=== PATIENT | female | born 1955 | race Caucasian/White ===

== ENCOUNTER 2018-01-24 23:01 | Emergency (ER) | payer BC ==
--- NOTE | 2018-01-24 23:13 | ERPHSYRPT ---
- History of Present Illness Time Seen by Provider: 01/24/18 23:09 Source: patient Exam Limitations: no limitations Physician History: The patient is a 62-year-old female with her who comes in at request of Dr. Brower who the patient saw yesterday. Dr. Brower calls me to inform me that the patient had bilateral lower extremity DVTs and was started on Xarelto. Her basic blood profile came back today and her hemoglobin was 4.4. Dr. Brower told the patient who lives nearby to come to this ER was then transport to [facility] the patient denies shortness of breath or chest pain. She has been tired and weak but attributes that to having taking care of her brother who just 2 days ago. Her PMH is chronic pain syndrome, GERD, edema, and high cholesterol. Timing/Duration: yesterday Severity: moderate Modifying Factors: Improves With: nothing Associated Symptoms: other (tiredness) Allergies/Adverse Reactions: erythromycin base Allergy (Verified 01/24/18 23:16) hives Home Medications: Buprenorphine HCl/Naloxone HCl [Suboxone 8 mg-2 mg Sl Film] 8 mg SL TID [History] Cholecalciferol (Vitamin D3) [Vitamin D3] 1 cap PO DAILY 01/24/18 [History] Diclofenac Sodium Gel [Voltaren GEL] 1 dose TD DAILY 01/24/18 [History] Lamotrigine [Lamictal] 25 mg PO DAILY 01/24/18 [History] Lidocaine HCl 5% Patch [Lidoderm Patch 5%] 1 patch TD DAILY 01/24/18 [ History] Methyl-B12/l-Mefolate/B6 Phos [Metanx Tablet] 1 tablet PO DAILY 01/24/18 [ History] PANTOPRAZOLE 40 mg Tablet [Protonix 40MG Tablet] 40 mg PO DAILY 01/24/18 [ History] Ranitidine HCl [Taladine] 150 mg PO DAILY 01/24/18 [History] Trazodone HCl 50 mg [Desyrel 50 mg] 50 mg PO DAILY 01/24/18 [History] Venlafaxine HCl [Effexor Xr] 150 mg PO DAILY 01/24/18 [History] - Review of Systems Constitutional: Malaise Eyes: No Symptoms Ears, Nose, & Throat: No Symptoms Respiratory: No Cough, No Dyspnea Cardiac: No Chest Pain, No Edema, No Syncope Abdominal/Gastrointestinal: No Abdominal Pain, No Nausea, No Vomiting, No Diarrhea Genitourinary Symptoms: No Dysuria Musculoskeletal: No Back Pain, No Neck Pain Skin: No Rash Neurological: No Dizziness, No Focal Weakness, No Sensory Changes Psychological: No Symptoms Endocrine: No Symptoms Hematologic/Lymphatic: No Symptoms Immunological/Allergic: No Symptoms All Other Systems: Reviewed and Negative - Nursing Vital Signs Nursing Vital Signs: Pain Scale Pain Intensity 1 - Physical Exam General Appearance: no apparent distress, alert Eye Exam: PERRL/EOMI, eyes nml inspection Ears, Nose, Throat Exam: normal ENT inspection, TMs normal, pharynx normal, moist mucous membranes Neck Exam: normal inspection, non-tender, supple, full range of motion Respiratory Exam: normal breath sounds, lungs clear, No respiratory distress Cardiovascular Exam: tachycardia Gastrointestinal/Abdomen Exam: soft, normal bowel sounds, No tenderness, No mass Pelvic Exam: not done Rectal Exam: not done Back Exam: normal inspection, normal range of motion, No CVA tenderness, No vertebral tenderness Extremity Exam: normal inspection, normal range of motion, pelvis stable Neurologic Exam: alert, oriented x 3, cooperative, normal mood/affect, nml cerebellar function, nml station & gait, sensation nml, No motor deficits Skin Exam: pale Lymphatic Exam: No adenopathy SpO2 Interpretation: normal Ordered Tests: Active Orders 24 hr Category Date Time Status BMP Stat Lab 01/24/18 23:29 Completed CBC W DIFF Stat Lab 01/24/18 23:29 Completed Lab/Rad Data: Laboratory Result Diagrams 01/24/18 23:29 01/24/18 23:29 Laboratory Results 01/25/18 01/24/18 01/24/18 Range/Units 00:00 23:29 23:29 WBC (4.0-10.5) K/mm3 RBC (4.1-5.4) M/mm3 Hgb (12.0-16.0) gm/dl Hct (35-47) % MCV (78-100) fl MCH (26-32) pg MCHC (32-36) g/dl RDW (11.5-14.0) % Plt Count (150-450) K/mm3 MPV (6-9.5) fl Gran % (36.0-66.0) % Eos # (Auto) (0-0.5) Absolute Lymphs (auto) (1.0-4.6) Absolute Monos (auto) (0.0-1.3) Lymphocytes % (24.0-44.0) % Monocytes % (0.0-12.0) % Eosinophils % (0.00-5.0) % Basophils % (0.0-0.4) % Absolute Granulocytes (1.4-6.9) Basophils # (0-0.4) Sodium 139 (137-145) mmol/L Potassium 3.9 (3.5-5.1) mmol/L Chloride 100 (98-107) mmol/L Carbon Dioxide 30 (22-30) mmol/L Anion Gap 12.4 (5-15) MEQ/L BUN 14 (7-17) mg/dL Creatinine 0.52 (0.52-1.04) mg/dL Estimated GFR > 60.0 ML/MIN Glucose 101 (74-106) mg/dL Calcium 9.3 (8.4-10.2) mg/dL Slides for Path Review ABO Group O Rh Factor NEGATIVE Antibody Screen NEGATIVE (NEGATIVE) Crossmatch COMPATIBLE (COMPATIBLE) 01/24/18 Range/Units 23:29 WBC 5.3 (4.0-10.5) K/mm3 RBC 3.02 L (4.1-5.4) M/mm3 Hgb 4.4 L* (12.0-16.0) gm/dl Hct 16.7 L (35-47) % MCV 55.3 L (78-100) fl MCH 14.5 L (26-32) pg MCHC 26.3 L (32-36) g/dl RDW 20.5 H (11.5-14.0) % Plt Count 614 H (150-450) K/mm3 MPV 10.1 H (6-9.5) fl Gran % 45.1 (36.0-66.0) % Eos # (Auto) 0.02 (0-0.5) Absolute Lymphs (auto) 2.08 (1.0-4.6) Absolute Monos (auto) 0.77 (0.0-1.3) Lymphocytes % 39.5 (24.0-44.0) % Monocytes % 14.6 H (0.0-12.0) % Eosinophils % 0.4 (0.00-5.0) % Basophils % 0.4 (0.0-0.4) % Absolute Granulocytes 2.37 (1.4-6.9) Basophils # 0.02 (0-0.4) Sodium (137-145) mmol/L Potassium (3.5-5.1) mmol/L Chloride (98-107) mmol/L Carbon Dioxide (22-30) mmol/L Anion Gap (5-15) MEQ/L BUN (7-17) mg/dL Creatinine (0.52-1.04) mg/dL Estimated GFR ML/MIN Glucose (74-106) mg/dL Calcium (8.4-10.2) mg/dL Slides for Path Review YES ABO Group Rh Factor Antibody Screen (NEGATIVE) Crossmatch (COMPATIBLE) - Progress Progress: unchanged Progress Note: 01/25/18 00:12 Pt given 1 unit of PRBC in our ER before transport to [facility] to see Dr Pathak for Dr Brower. Counseled pt/family regarding: lab results, diagnosis - Departure Time of Disposition: 00:13 Departure Disposition: Transfer (Transfer to [facility] per Dr Pathak for Dr Brower.) Clinical Impression: Anemia Condition: Stable Critical Care Time: No Referrals: TYE BROWER MD [Primary Care Provider] -
[2018-01-24 23:32] LABS: BASOPHIL % 0.4 % (0.0-0.4); Basophil (Absolute #) 0.02 (0-0.4); Eosinophil % 0.4 % (0.00-5.0); Eosinophil (Absolute #) 0.02 (0-0.5); Granulocyte Absolute (ANC) 2.37 (1.4-6.9); Granulocytes % 45.1 % (36.0-66.0); Hematocrit 16.7 % (35-47); Lymphocyte (Absolute #) 2.08 (1.0-4.6); Lymphocytes % 39.5 % (24.0-44.0); Mean Cell Volume 55.3 fl (78-100); Mean Corpuscular Hgb Concent. 26.3 g/dl (32-36); Mean Platelet Volume 10.1 fl (6-9.5); Monocyte (Absolute #) 0.77 (0.0-1.3); Monocytes % 14.6 % (0.0-12.0); Platelet Count 614 K/mm3 (150-450); Red Blood Count 3.02 M/mm3 (4.1-5.4); Red Cell Distribution Width 20.5 % (11.5-14.0); White Blood Count 5.3 K/mm3 (4.0-10.5)
[2018-01-24 23:35] LABS: Hemoglobin 4.4 gm/dl (12.0-16.0); Mean Corpuscular Hemoglobin 14.5 pg (26-32)
[2018-01-24 23:49] LABS: ANION GAP 12.4 MEQ/L (5-15); BLOOD UREA NITROGEN 14 mg/dL (7-17); CHLORIDE 100 mmol/L (98-107); Calcium 9.3 mg/dL (8.4-10.2); Carbon Dioxide 30 mmol/L (22-30); Creatinine 1 0.52 mg/dL (0.52-1.04); Glucose 101 mg/dL (74-106); Potassium 3.9 mmol/L (3.5-5.1); SODIUM 139 mmol/L (137-145)
[2018-01-25 00:04] LABS: Slide Review 1 YES
[2018-01-25 00:12] LABS: ABO TYPING O; Antibody Screen NEGATIVE (NEGATIVE); RH TYPING NEGATIVE
[2018-01-25] MEDS ORDERED: Sodium Chloride 0.9% 1000 ML 1,000 ML ONE (01:07)
[2018-01-25 02:52] VITALS: BP 128/94; PULSE 78; O2SAT 96
== END 2018-01-25 02:52 | disposition short-term general hospital (02) ==
LOC: ED 23:01
DX: D64.9 Anemia, unspecified (principal); Z79.899 Other long term (current) drug therapy; I82.403 Acute embolism and thrombosis of unspecified deep veins of lower extremity, bilateral; Z79.01 Long term (current) use of anticoagulants
CPT/HCPCS: 36415; 80048; 85025; 86850; 86900; 86901; 86922; 96365; 99285; P9016; 36430

== ENCOUNTER 2021-10-15 10:54 | Emergency (ER) | payer MEDICARE, OTHER ==
[2021-10-15] MEDS ORDERED: MORPHINE SULFATE 4 MG INJ IV ONE (11:46)
[2021-10-15] MEDS ORDERED: TYLENOL 325 MG PO ONE (11:46)
[2021-10-15] MEDS ORDERED: Zofran 4 MG/2 ML VIAL IV ONE (11:46)
[2021-10-15 12:17] LABS: Absolute Neutrophil Ct (ANC) 3.37 (1.4-6.9); Basophil (Absolute #) 0.01 (0-0.4); Eosinophil % 0.5 % (0.00-5.0); Eosinophil (Absolute #) 0.02 (0-0.5); Hematocrit 38.1 % (35-47); Hemoglobin 12.6 gm/dl (12.0-16.0); Mean Cell Volume 91.1 fl (78-100); Mean Corpuscular Hemoglobin 30.1 pg (26-32); Mean Corpuscular Hgb Concent. 33.1 g/dl (32-36); Mean Platelet Volume 11.4 fl (7.5-11.0); Monocyte (Absolute #) 0.59 (0.0-1.3); Monocytes % 13.8 % (0.0-12.0); Neutrophil % 78.5 % (36.0-66.0); Platelet Count 179 K/mm3 (150-450); Red Blood Count 4.18 M/mm3 (4.1-5.4); Red Cell Distribution Width 13.5 % (11.5-14.0); White Blood Count 4.3 K/mm3 (4.0-10.5)
--- NOTE | 2021-10-15 12:17 | ERPHSYRPT ---
- History of Present Illness Time Seen by Provider: 10/15/21 11:02 Source: patient Exam Limitations: no limitations Patient Subjective Stated Complaint: Pt states that she is having amanda leg pain and nausea Triage Nursing Assessment: Pt brought to the ER by her granddaughter, hyertensive, tachycardic, pt states that she woke up with severe amanda leg pain, nausea with dry heaves, headache, pulses normal, skin n/w/d, walks with a cane, states that she has a history of DVT's Physician History: 66 years old female vaccinated for COVID-19, history of arthritis on Suboxone, DVT on Xarelto regularly presented in the ER with multiple complaints. Patient reports she woke up with bilateral hip/thigh pain, headache, body aches with nausea/dry heaving, feeling weak fatigued tired without fever chills cough or shortness of breath. Denies any abdominal pain. Did not miss dose of Xarelto. Patient states "I need something for my thigh pains which is killing me". Timing/Duration: today Severity: moderate Associated Symptoms: nausea, malaise, No vomiting, No abdominal pain, No shortness of breath, No fever Allergies/Adverse Reactions: pregabalin [From Lyrica] Allergy (Intermediate, Verified 10/15/21 11:14) Rash erythromycin base Allergy (Verified 10/15/21 11:14) hives Home Medications: Buprenorphine HCl/Naloxone HCl [Suboxone 8 mg-2 mg Sl Film] 8 mg SL TID 01/24/18 [History] PANTOPRAZOLE 40 mg Tablet [Protonix 40MG Tablet] 40 mg PO DAILY 01/24/18 [History] Trazodone HCl 50 mg [Desyrel 50 mg] 50 mg PO DAILY 01/24/18 [History] lamoTRIgine [Lamictal] 25 mg PO DAILY 01/24/18 [History] raNITIdine HCL [Taladine] 150 mg PO DAILY 01/24/18 [History] ARIPiprazole [Aripiprazole] 2 mg PO HS 10/15/21 [History] Famotidine 40 mg PO DAILY 10/15/21 [History] Rivaroxaban 10 mg Tablet [Xarelto 10 mg Tablet] 10 mg PO DAILY 10/15/21 [History] Sertraline HCl [Zoloft] 150 mg PO DAILY 10/15/21 [History] Travel Risk - International Travel Have you traveled outside of the country in past 3 weeks: No - Coronavirus Screening Are you exhibiting any of the following symptoms?: Yes Symptoms: Vomiting/Diarrhea, Headaches/Body Aches/Fatigue - Vaccine Status Have you recieved a Covid-19 vaccination: Yes Security Attendant: [employer] - Review of Systems Constitutional: Fatigue Eyes: No Symptoms Ears, Nose, & Throat: No Symptoms Respiratory: No Symptoms Cardiac: No Symptoms Abdominal/Gastrointestinal: Nausea Genitourinary Symptoms: No Symptoms Musculoskeletal: Arthralgias, Back Pain, Myalgias Skin: No Symptoms Neurological: Headache Psychological: No Symptoms Endocrine: No Symptoms Hematologic/Lymphatic: No Symptoms Immunological/Allergic: No Symptoms - Past Medical History Pertinent Past Medical History: Yes Neurological History: No Pertinent History ENT History: No Pertinent History Cardiac History: No Pertinent History Respiratory History: No Pertinent History Endocrine Medical History: No Pertinent History Musculoskeletal History: Arthritis, Fibromyalgia GI Medical History: GERD History: No Pertinent History Psycho-Social History: No Pertinent History Female Reproductive Disorders: No Pertinent History Other Medical History: hiatal hernia, constipation, edema, coagulopathy, oste omalacia, osteopenia, scoliosis - Past Surgical History Past Surgical History: Yes Neuro Surgical History: No Pertinent History Cardiac: No Pertinent History Respiratory: No Pertinent History Gastrointestinal: Hernia Repair Genitourinary: No Pertinent History Musculoskeletal: No Pertinent History Female Surgical History: Hysterectomy - Social History Smoking Status: Former smoker Exposure to second hand smoke: No Drug Use: none Patient Lives Alone: No - Female History Hx Now: No - Nursing Vital Signs Nursing Vital Signs: Initial Vital Signs Temperature 98.8 F 10/15/21 11:04 Pulse Rate 108 H 10/15/21 11:04 Blood Pressure 162/117 10/15/21 11:04 O2 Sat by Pulse Oximetry 96 10/15/21 11:04 Pain Scale Pain Intensity 10 - Physical Exam General Appearance: no apparent distress, alert Eye Exam: PERRL/EOMI, eyes nml inspection Ears, Nose, Throat Exam: normal ENT inspection, TMs normal, pharynx normal Neck Exam: normal inspection, non-tender, supple, carotid bruit Respiratory Exam: normal breath sounds, lungs clear Cardiovascular Exam: regular rate/rhythm, normal heart sounds Gastrointestinal/Abdomen Exam: soft, normal bowel sounds, No tenderness Back Exam: normal inspection, normal range of motion Extremity Exam: normal inspection, normal range of motion, pelvis stable Neurologic Exam: alert, oriented x 3, cooperative, backbreaker II-XII nml as tested Skin Exam: normal color SpO2 Interpretation: normal SpO2: 96 O2 Delivery: Room Air Ordered Tests: Active Orders 24 hr Category Date Time Status CBC W DIFF Stat Lab 10/15/21 12:10 Completed CK (IN-HOUSE) [CK-Creatinine Phosphokinase] Stat Lab 10/15/21 12:10 Completed CMP Stat Lab 10/15/21 12:10 Completed COVID AG-BINAX NOW RAPID TEST Stat Lab 10/15/21 13:07 Completed CULTURE,URINE Stat Lab 10/15/21 12:31 Received UA W/RFX UR CULTURE Stat Lab 10/15/21 12:31 Completed Medication Summary Discontinued Medications Generic Name Dose Route Start Last Admin Trade Name Freq PRN Reason Stop Dose Admin Acetaminophen 975 mg 10/15/21 11:46 10/15/21 12:43 Acetaminophen 325 Mg Tablet PO 10/15/21 11:47 975 mg STAT ONE Administration Acetaminophen Confirm 10/15/21 12:41 Acetaminophen 325 Mg Tablet Administered 10/15/21 12:42 Dose 975 mg .ROUTE .STK-MED ONE Cephalexin HCl 500 mg 10/15/21 13:24 10/15/21 13:36 Cephalexin Mh500 Mg Capsule PO 10/15/21 13:25 500 mg STAT ONE Administration Cephalexin HCl Confirm 10/15/21 13:34 Cephalexin Mh500 Mg Capsule Administered 10/15/21 13:35 Dose 500 mg .ROUTE .STK-MED ONE Morphine Sulfate 4 mg 10/15/21 11:46 10/15/21 12:42 Morphine Sulfate 4 Mg/Ml Injection IV 10/15/21 11:47 4 mg STAT ONE Administration Morphine Sulfate Confirm 10/15/21 12:41 Morphine Sulfate 4 Mg/Ml Injection Administered 10/15/21 12:42 Dose 4 mg .ROUTE .STK-MED ONE Ondansetron HCl 4 mg 10/15/21 11:46 10/15/21 12:42 Ondansetron Hcl 4 Mg/2 Ml Vial IV 10/15/21 11:47 4 mg STAT ONE Administration Ondansetron HCl Confirm 10/15/21 12:41 Ondansetron Hcl 4 Mg/2 Ml Vial Administered 10/15/21 12:42 Dose 4 mg .ROUTE .STK-MED ONE Lab/Rad Data: Laboratory Result Diagrams 10/15/21 12:10 10/15/21 12:10 Laboratory Results 10/15/21 10/15/21 10/15/21 Range/Units 13:07 12:31 12:10 WBC (4.0-10.5) K/mm3 RBC (4.1-5.4) M/mm3 Hgb (12.0-16.0) gm/dl Hct (35-47) % MCV (78-100) fl MCH (26-32) pg MCHC (32-36) g/dl RDW (11.5-14.0) % Plt Count (150-450) K/mm3 MPV (7.5-11.0) fl Gran % (36.0-66.0) % Eos # (Auto) (0-0.5) Absolute Lymphs (auto) (1.0-4.6) Absolute Monos (auto) (0.0-1.3) Lymphocytes % (24.0-44.0) % Monocytes % (0.0-12.0) % Eosinophils % (0.00-5.0) % Basophils % (0.0-0.4) % Absolute Granulocytes (1.4-6.9) Basophils # (0-0.4) Sodium (137-145) mmol/L Potassium (3.5-5.1) mmol/L Chloride (98-107) mmol/L Carbon Dioxide (22-30) mmol/L Anion Gap (5-15) MEQ/L BUN (7-17) mg/dL Creatinine (0.52-1.04) mg/dL Estimated GFR ML/MIN Glucose (74-106) mg/dL Calcium (8.4-10.2) mg/dL Total Bilirubin (0.2-1.3) mg/dL AST (14-36) U/L ALT (0-35) U/L Alkaline Phosphatase (38-126) U/L Creatine Kinase 50 (30-135) U/L Serum Total Protein (6.3-8.2) g/dL Albumin (3.5-5.0) g/dL Urine Color YELLOW (YELLOW) Urine Appearance SLIGHTLY CLOUDY (CLEAR) Urine pH 5.0 (5-6) Ur Specific [place] 1.018 (1.005-1.025) Urine Protein 30 (Negative) Urine Ketones TRACE (NEGATIVE) Urine Blood SMALL (0-5) Patricio/ul Urine Nitrite NEGATIVE (NEGATIVE) Urine Bilirubin NEGATIVE (NEGATIVE) Urine Urobilinogen 2 (0-1) mg/dL Ur Leukocyte Esterase LARGE (NEGATIVE) Urine WBC (Auto) 16-25 (0-5) /HPF Urine RBC (Auto) 3-5 (0-2) /HPF U Epithel Cells (Auto) RARE (FEW) /HPF Urine Bacteria (Auto) RARE (NEGATIVE) /HPF Urine Mucus (Auto) SLIGHT (NEGATIVE) /HPF Urine Culture Reflexed YES (NO) Urine Glucose NEGATIVE (NEGATIVE) mg/dL SARS-CoV-2 Ag (Rapid) POSITIVE A* (NEGATIVE) Slides for Path Review 10/15/21 10/15/21 Range/Units 12:10 12:10 WBC 4.3 (4.0-10.5) K/mm3 RBC 4.18 (4.1-5.4) M/mm3 Hgb 12.6 (12.0-16.0) gm/dl Hct 38.1 (35-47) % MCV 91.1 (78-100) fl MCH 30.1 (26-32) pg MCHC 33.1 (32-36) g/dl RDW 13.5 (11.5-14.0) % Plt Count 179 (150-450) K/mm3 MPV 11.4 H (7.5-11.0) fl Gran % 78.5 H (36.0-66.0) % Eos # (Auto) 0.02 (0-0.5) Absolute Lymphs (auto) 0.30 L (1.0-4.6) Absolute Monos (auto) 0.59 (0.0-1.3) Lymphocytes % 7.0 L (24.0-44.0) % Monocytes % 13.8 H (0.0-12.0) % Eosinophils % 0.5 (0.00-5.0) % Basophils % 0.2 (0.0-0.4) % Absolute Granulocytes 3.37 (1.4-6.9) Basophils # 0.01 (0-0.4) Sodium 136 L (137-145) mmol/L Potassium 3.5 (3.5-5.1) mmol/L Chloride 98 (98-107) mmol/L Carbon Dioxide 28 (22-30) mmol/L Anion Gap 13.1 (5-15) MEQ/L BUN 13 (7-17) mg/dL Creatinine 0.65 (0.52-1.04) mg/dL Estimated GFR > 60.0 ML/MIN Glucose 113 H (74-106) mg/dL Calcium 9.2 (8.4-10.2) mg/dL Total Bilirubin 0.50 (0.2-1.3) mg/dL AST 31 (14-36) U/L ALT 19 (0-35) U/L Alkaline Phosphatase 106 (38-126) U/L Creatine Kinase (30-135) U/L Serum Total Protein 7.3 (6.3-8.2) g/dL Albumin 4.3 (3.5-5.0) g/dL Urine Color (YELLOW) Urine Appearance (CLEAR) Urine pH (5-6) Ur Specific [place] (1.005-1.025) Urine Protein (Negative) Urine Ketones (NEGATIVE) Urine Blood (0-5) Patricio/ul Urine Nitrite (NEGATIVE) Urine Bilirubin (NEGATIVE) Urine Urobilinogen (0-1) mg/dL Ur Leukocyte Esterase (NEGATIVE) Urine WBC (Auto) (0-5) /HPF Urine RBC (Auto) (0-2) /HPF U Epithel Cells (Auto) (FEW) /HPF Urine Bacteria (Auto) (NEGATIVE) /HPF Urine Mucus (Auto) (NEGATIVE) /HPF Urine Culture Reflexed (NO) Urine Glucose (NEGATIVE) mg/dL SARS-CoV-2 Ag (Rapid) (NEGATIVE) Slides for Path Review YES - Progress Progress: improved Progress Note: 10/15/21 12:18 Although patient is on Xarelto, still very little chance of having DVT, recommended ultrasound which patient refused. Patient states "I have ultrasound done less than a week ago and it was negative. She is informed that since her pain started this morning she needs another scan but she refused again and wants something for pain only. She does understand the risk of having another DVT which can lead to pulmonary embolism, stroke but still refused. She is not c onfused or altered at all. 10/15/21 14:03 She is given symptomatic treatment for pain, on reevaluation feeling better. She has grossly unremarkable lab work except for some element of UTI and started on Keflex. Patient on repeated evaluation refused ultrasound as well. I have obtained rapid Covid test which is positive and with her symptoms it seems like she has viral syndrome. Recommended supportive care and outpatient follow-up. Lungs bilateral clear to auscultation and does not have any difficulty breathing, do not think needs any imaging or other work-up and is stable for discharge. Counseled pt/family regarding: lab results, diagnosis, need for follow-up - Departure Departure Disposition: Home Clinical Impression: Acute viral syndrome, Leg pain, bilateral, COVID-19 virus detected, Acute UTI Condition: Stable Critical Care Time: No Referrals: TYE BROWER MD [Primary Care Provider] - Follow up/PCP as directed (1-2 days for reevaluation) Instructions: Coronavirus Disease 2019 (COVID-19) (DC), Deep Vein Thrombosis (Blood Clots in the Legs) Additional Instructions: Continue with your blood thinner/Xarelto. Follow-up with primary care for reevaluation. Take Tylenol as needed. Follow contact/droplet precautions for COVID-19. Return to ER for worsening pain, intractable vomiting/persistent high-grade fever/difficulty breathing etc. Prescriptions: Cephalexin Mh 500 mg [Keflex 500 mg] 500 mg PO TID #21 cap
[2021-10-15] MEDS ORDERED: MORPHINE SULFATE 4 MG INJ ONE (12:41)
[2021-10-15] MEDS ORDERED: Zofran 4 MG/2 ML VIAL ONE (12:41)
[2021-10-15] MEDS ORDERED: TYLENOL 325 MG ONE (12:41)
[2021-10-15 12:43] LABS: ALBUMIN 4.3 g/dL (3.5-5.0); ALKALINE PHOSPHATASE 106 U/L (38-126); ANION GAP 13.1 MEQ/L (5-15); BLOOD UREA NITROGEN 13 mg/dL (7-17); CHLORIDE 98 mmol/L (98-107); Calcium 9.2 mg/dL (8.4-10.2); Carbon Dioxide 28 mmol/L (22-30); Creatinine 1 0.65 mg/dL (0.52-1.04); EST GLOMERULAR FILTRATION RATE > 60.0 ML/MIN; Glucose 113 mg/dL (74-106); Potassium 3.5 mmol/L (3.5-5.1); SGOT/AST 31 U/L (14-36); SGPT/ALT 19 U/L (0-35); SODIUM 136 mmol/L (137-145); Total Protein 7.3 g/dL (6.3-8.2)
[2021-10-15 13:09] LABS: Appearance SLIGHTLY CLOUDY (CLEAR); Bacteria RARE /HPF (NEGATIVE); Bilirubin NEGATIVE (NEGATIVE); Blood SMALL Ery/ul (0-5); Epithelial Cells RARE /HPF (FEW); Glucose NEGATIVE (NEGATIVE); Ketones TRACE (NEGATIVE); Leukocyte Esterase LARGE (NEGATIVE); Mucus SLIGHT /HPF (NEGATIVE); Nitrite NEGATIVE (NEGATIVE); Protein,Urine Dip 30 (Negative); Specific Gravity 1.018 (1.005-1.025); Urobilinogen 2 mg/dL (0-1)
[2021-10-15] MEDS ORDERED: KEFLEX 500 MG PO ONE (13:24)
[2021-10-15 13:27] LABS: Slide Review 1 YES
[2021-10-15] MEDS ORDERED: KEFLEX 500 MG ONE (13:34)
[2021-10-15 13:49] LABS: COVID AG -BINAX NOW RAPID TEST POSITIVE (NEGATIVE)
[2021-10-15 14:12] VITALS: BP 145/101; PULSE 107; O2SAT 91
== END 2021-10-15 14:22 | disposition home or self-care (01) ==
LOC: ED 10:54
DX: U07.1 COVID-19 (principal); N39.0 Urinary tract infection, site not specified; M79.18 Myalgia, other site; M25.552 Pain in left hip; M25.551 Pain in right hip; R51.9 Headache, unspecified; R11.0 Nausea; R53.81 Other malaise; M19.09 Primary osteoarthritis, other specified site; Z86.718 Personal history of other venous thrombosis and embolism; Z79.01 Long term (current) use of anticoagulants; Z79.891 Long term (current) use of opiate analgesic
CPT/HCPCS: 36000; 36415; 80053; 81001; 82550; 85025; 87086; 96374; 96375; 99000; 99284; J2270; J2405; A9270-GY

== ENCOUNTER 2022-09-14 17:16 | Observation (INO) | payer MEDICARE, OTHER ==
[2022-09-14] MEDS ORDERED: solu-MEDROL 125 MG, Sterile H2O 10 ml 2 ML IV ONE ×2 (18:02)
[2022-09-14] MEDS ORDERED: DUONEB 0.5-3 MG/3 ml Neb IH ONE ×2 (18:02→18:29)
[2022-09-14] MEDS ORDERED: Sterile H2O 10 ml IJ ONE (18:22)
[2022-09-14] MEDS ORDERED: solu-MEDROL ONE (18:22)
[2022-09-14 18:46] LABS: Absolute Neutrophil Ct (ANC) 4.42 x10^3/uL (1.4-6.9); Basophil (Absolute #) 0.02 x10^3/uL (0-0.4); Eosinophil % 0.2 % (0.00-5.0); Eosinophil (Absolute #) 0.01 x10^3/uL (0-0.5); Hematocrit 40.5 % (35-47); Hemoglobin 13.1 g/dL (12.0-16.0); Lymphocyte (Absolute #) 1.29 x10^3/uL (1.0-4.6); Lymphocytes % 20.2 % (24.0-44.0); Mean Cell Volume 89.2 fL (78-100); Mean Corpuscular Hemoglobin 28.9 pg (26-32); Mean Corpuscular Hgb Concent. 32.3 g/dL (32-36); Mean Platelet Volume 11.1 fL (7.5-11.0); Monocyte (Absolute #) 0.63 x10^3/uL (0.0-1.3); Monocytes % 9.9 % (0.0-12.0); Neutrophil % 69.1 % (36.0-66.0); Platelet Count 270 x10^3/uL (150-450); Red Blood Count 4.54 x10^6/uL (4.1-5.4); Red Cell Distribution Width 12.8 % (11.5-14.0); White Blood Count 6.4 x10^3/uL (4.0-10.5)
--- NOTE | 2022-09-14 18:49 | ERPHSYRPT ---
- History of Present Illness Source: patient Exam Limitations: no limitations Patient Subjective Stated Complaint: SOB with exertion, did have a cough but is over it now Triage Nursing Assessment: Pt brought to the ER by her , baron wnl, denies pain at this time, skin n/w/d, family had all been sick 2 weeks ago and she didn't get over it, pulses normal, placed 2L NC due to oxygen running at 93% and is now at 96-97% Timing/Duration: week(s) (2) Activities at Onset: none Severity of Dyspnea-Max: moderate Severity of Dyspnea-Current: moderate Possible Cause: no prior episodes Modifying Factors: Improves With: coughing Associated Symptoms: cough, No fever, No chills Hx Influenza Vaccination/Date Given: No Hx Pneumococcal Vaccination/Date Given: No <REYNALDO BERGMAN - Last Filed: 09/14/22 18:43> <SHONDA DILL - Last Filed: 09/14/22 21:45> - History of Present Illness Time Seen by Provider: 09/14/22 17:55 Physician History: Patient is a 67-year-old female who presents with a complaint of dyspnea and cough. The entire family was sick for short period of time 2 weeks ago most members of the family recovered within 48 hours but this patient has not. She denies any fever chills or sweats just difficulty urinating and extreme shortne ss of breath. (REYNALDO BERGMAN) Allergies/Adverse Reactions: pregabalin [From Lyrica] Allergy (Intermediate, Verified 09/14/22 18:10) Rash erythromycin base Allergy (Verified 09/14/22 18:10) hives Home Medications: Buprenorphine HCl/Naloxone HCl [Suboxone 8 mg-2 mg Sl Film] 8 mg SL TID 01/24/18 [History] PANTOPRAZOLE 40 mg Tablet [Protonix 40MG Tablet] 40 mg PO DAILY 01/24/18 [History] Trazodone HCl 50 mg [Desyrel 50 mg] 150 mg PO DAILY 01/24/18 [History] lamoTRIgine [Lamictal] 25 mg PO DAILY 01/24/18 [History] raNITIdine HCL [Taladine] 150 mg PO DAILY 01/24/18 [History] ARIPiprazole [Aripiprazole] 2 mg PO HS 10/15/21 [History] Famotidine 40 mg PO DAILY 10/15/21 [History] Rivaroxaban 10 mg Tablet [Xarelto 10 mg Tablet] 10 mg PO DAILY 10/15/21 [History] Sertraline HCl [Zoloft] 100 mg PO DAILY 10/15/21 [History] Travel Risk - International Travel Have you traveled outside of the country in past 3 weeks: No - Coronavirus Screening Are you exhibiting any of the following symptoms?: Yes Symptoms: Shortness of Breath Close contact with a COVID-19 positive Pt in past 14-21 Days: No - Vaccine Status Have you recieved a Covid-19 vaccination: Yes Process Inspector: charming charlie <REYNALDO BERGMAN - Last Filed: 09/14/22 18:43> - Review of Systems Constitutional: No Fever, No Chills Eyes: No Symptoms Ears, Nose, & Throat: No Symptoms Respiratory: Cough, Dyspnea, Dyspnea on Exertion (ZAVALA) Cardiac: No Chest Pain, No Edema, No Syncope Abdominal/Gastrointestinal: No Abdominal Pain, No Nausea, No Vomiting, No Diarrhea Genitourinary Symptoms: Hesitancy, No Dysuria Musculoskeletal: No Back Pain, No Neck Pain Skin: No Rash Neurological: No Dizziness, No Focal Weakness, No Sensory Changes Psychological: No Symptoms Endocrine: No Symptoms All Other Systems: Reviewed and Negative <REYNALDO BERGMAN Last Filed: 09/14/22 18:43> - Past Medical History Pertinent Past Medical History: Yes Neurological History: No Pertinent History ENT History: No Pertinent History Cardiac History: No Pertinent History Respiratory History: No Pertinent History Endocrine Medical History: No Pertinent History Musculoskeletal History: Arthritis, Fibromyalgia GI Medical History: GERD History: No Pertinent History Psycho-Social History: No Pertinent History Female Reproductive Disorders: No Pertinent History Other Medical History: hiatal hernia, constipation, edema, coagulopathy, osteomalacia, osteopenia, scoliosis - Past Surgical History Past Surgical History: Yes Neuro Surgical History: No Pertinent History Cardiac: No Pertinent History Respiratory: No Pertinent History Gastrointestinal: Hernia Repair Genitourinary: No Pertinent History Musculoskeletal: No Pertinent History Female Surgical History: Hysterectomy - Social History Smoking Status: Former smoker Exposure to second hand smoke: No Drug Use: none Patient Lives Alone: No <REYNALDO BERGMAN Last Filed: 09/14/22 18:43> - Physical Exam General Appearance: mild distress, alert Eye Exam: PERRL/EOMI Ears, Nose, Throat Exam: hearing grossly normal, normal ENT inspection Neck Exam: normal inspection, supple Respiratory Exam: airway intact, crackles/rales, wheezing Cardiovascular/Chest Exam: normal heart sounds, regular rate/rhythm Abdominal/Gastrointestinal Exam: soft, No tenderness, No distention, No mass Extremity Exam: non-tender, normal range of motion, normal inspection, no calf tenderness, no pedal edema Neurologic Exam: alert, oriented x 3, cooperative, dye operator II-XII nml as tested, sensation nml, No motor deficits Skin Exam: normal color, warm, No dry SpO2 Interpretation: O2 applied SpO2: 96 O2 Delivery: Nasal Cannula <REYNALDO BERGMAN - Last Filed: 09/14/22 18:43> - Nursing Vital Signs Nursing Vital Signs: Initial Vital Signs Temperature 98.4 F 09/14/22 17:49 Pulse Rate 78 09/14/22 17:49 Respiratory Rate 22 09/14/22 17:49 Blood Pressure 135/85 09/14/22 17:49 O2 Sat by Pulse Oximetry 94 L 09/14/22 17:49 Pain Scale Pain Intensity 0 - Course Nursing assessment & vital signs reviewed: Yes EKG Interpreted by Me: RATE (97), Sinus Rhythm, NORMAL AXIS, prolonged QT interval, Non-specific ST Changes <REYNALDO BERGMAN - Last Filed: 09/14/22 18:43> Ordered Tests: Active Orders 24 hr Category Date Time Status EKG-ER Only STAT Care 09/14/22 18:02 Active IV Insertion STAT Care 09/14/22 18:02 Active Oxygen-ED Only Nasal Cannula 2 lpm Care 09/14/22 18:02 Active CHEST 1 VIEW (PORTABLE) Stat Exams 09/14/22 18:03 Taken BLOOD CULTURE Stat Lab 09/14/22 18:39 Received CBC W DIFF Stat Lab 09/14/22 18:39 Completed CMP Stat Lab 09/14/22 18:39 Completed CULTURE,URINE Stat Lab 09/14/22 19:35 Received D-DIMER QUANTITATIVE Stat Lab 09/14/22 18:39 Completed Lactic Acid Stat Lab 09/14/22 18:18 Completed MAGNESIUM Stat Lab 09/14/22 18:39 Completed NT PRO BNP Stat Lab 09/14/22 18:39 Completed TROPONIN Q4H Lab 09/14/22 18:39 Completed TROPONIN Q4H Lab 09/14/22 22:15 Ordered TROPONIN Q4H Lab 09/15/22 02:15 Ordered UA W/RFX CULTURE Stat Lab 09/14/22 19:35 Completed Respiratory Therapy Assessment DAILY RT 09/14/22 18:32 Active Transfer Order Routine Transfer 09/14/22 Ordered Medication Summary Discontinued Medications Generic Name Dose Route Start Last Admin Trade Name [place] PRN Reason Stop Dose Admin Albuterol/Ipratropium 3 ml 09/14/22 18:02 09/14/22 18:32 Ipratropium/Albuterol Sulfate 3 Ml Ampul.Neb IH 09/14/22 18:03 3 ml STAT ONE Administration Albuterol/Ipratropium Confirm 09/14/22 18:29 Ipratropium/Albuterol Sulfate 3 Ml Ampul.Neb Administered 09/14/22 18:30 Dose 3 ml IH .STK-MED ONE Methylprednisolone Sodium 0 mg 09/14/22 18:02 09/14/22 18:24 Succinate 125 mg/ Sterile IV 09/14/22 18:03 125 mg Water 2 ml STAT ONE Administration Methylprednisolone Sodium Succinate Confirm 09/14/22 18:22 Methylprednis Sod Succ 125 Mg/2 Ml Vial Administered 09/14/22 18:23 Dose 125 mg .ROUTE .STK-MED ONE Sterile Water Confirm 09/14/22 18:22 Water For Injection,Sterile 10 Ml Vial Administered 09/14/22 18:23 Dose 10 ml IJ .STK-MED ONE Lab/Rad Data: Laboratory Result Diagrams 09/14/22 18:39 09/14/22 18:39 Laboratory Results 09/14/22 09/14/22 09/14/22 Range/Units 19:35 18:39 18:39 WBC (4.0-10.5) x10^3/uL RBC (4.1-5.4) x10^6/uL Hgb (12.0-16.0) g/dL Hct (35-47) % MCV (78-100) fL MCH (26-32) pg MCHC (32-36) g/dL RDW (11.5-14.0) % Plt Count (150-450) x10^3/uL MPV (7.5-11.0) fL Gran % (36.0-66.0) % Immature Gran % (Auto) (0.00-0.4) % Nucleat RBC Rel Count (0.00-0.1) % Eos # (Auto) (0-0.5) x10^3/uL Immature Gran # (Auto) (0.00-0.03) x10^3u/L Absolute Lymphs (auto) (1.0-4.6) x10^3/uL Absolute Monos (auto) (0.0-1.3) x10^3/uL Absolute Nucleated RBC (0.00-0.01) x10^3u/L Lymphocytes % (24.0-44.0) % Monocytes % (0.0-12.0) % Eosinophils % (0.00-5.0) % Basophils % (0.0-0.4) % Absolute Granulocytes (1.4-6.9) x10^3/uL Basophils # (0-0.4) x10^3/uL D-Dimer (0.0-0.50) mg/L Sodium (137-145) mmol/L Potassium (3.5-5.1) mmol/L Chloride (98-107) mmol/L Carbon Dioxide (22-30) mmol/L Anion Gap (5-15) MEQ/L BUN (7-17) mg/dL Creatinine (0.52-1.04) mg/dL Estimated GFR ML/MIN Glucose (74-106) mg/dL Lactic Acid (0.4-2.0) Calcium (8.4-10.2) mg/dL Magnesium (1.6-2.3) mg/dL Total Bilirubin (0.2-1.3) mg/dL AST (14-36) U/L ALT (0-35) U/L Alkaline Phosphatase (38-126) U/L Troponin I < 0.012 (0.000-0.034) ng/mL NT-Pro-B Natriuret Pep (0-900) pg/mL Serum Total Protein (6.3-8.2) g/dL Albumin (3.5-5.0) g/dL Urinalys Dipstick Clnc MAIN LAB Urine Color YELLOW (YELLOW) Urine Appearance CLEAR (CLEAR) Urine pH 6.5 (5-6) Ur Specific Franklin 1.010 (1.005-1.025) POC Urine Protein Conf NEGATIVE (Negative) Urine Ketones NEGATIVE (NEGATIVE) Urine Nitrite NEGATIVE (NEGATIVE) Urine Bilirubin NEGATIVE (NEGATIVE) Urine Urobilinogen 0.2 (0-1) mg/dL Urine Leukocytes SMALL A (NEGATIVE) Urine WBC (Auto) 6-10 A (0-5) /HPF Urine RBC (Auto) 3-5 A (0-2) /HPF U Epithel Cells (Auto) RARE (FEW) /HPF Urine Bacteria (Auto) NONE (NEGATIVE) /HPF Urine RBC TRACE-INTACT A (0-5) Patricio/ul Ur Culture Indicated? YES Urine Glucose NEGATIVE (NEGATIVE) mg/dL Influenza Type A Ag NEGATIVE (NEGATIVE) Influenza Type B Ag NEGATIVE (NEGATIVE) RSV (PCR) NEGATIVE (Negative) SARS-CoV-2 (PCR) NEGATIVE (NEGATIVE) 09/14/22 09/14/22 09/14/22 Range/Units 18:39 18:39 18:39 WBC 6.4 (4.0-10.5) x10^3/uL RBC 4.54 (4.1-5.4) x10^6/uL Hgb 13.1 (12.0-16.0) g/dL Hct 40.5 (35-47) % MCV 89.2 (78-100) fL MCH 28.9 (26-32) pg MCHC 32.3 (32-36) g/dL RDW 12.8 (11.5-14.0) % Plt Count 270 (150-450) x10^3/uL MPV 11.1 H (7.5-11.0) fL Gran % 69.1 H (36.0-66.0) % Immature Gran % (Auto) 0.3 (0.00-0.4) % Nucleat RBC Rel Count 0.0 (0.00-0.1) % Eos # (Auto) 0.01 (0-0.5) x10^3/uL Immature Gran # (Auto) 0.02 (0.00-0.03) x10^3u/L Absolute Lymphs (auto) 1.29 (1.0-4.6) x10^3/uL Absolute Monos (auto) 0.63 (0.0-1.3) x10^3/uL Absolute Nucleated RBC 0.00 (0.00-0.01) x10^3u/L Lymphocytes % 20.2 L (24.0-44.0) % Monocytes % 9.9 (0.0-12.0) % Eosinophils % 0.2 (0.00-5.0) % Basophils % 0.3 (0.0-0.4) % Absolute Granulocytes 4.42 (1.4-6.9) x10^3/uL Basophils # 0.02 (0-0.4) x10^3/uL D-Dimer < 0.19 (0.0-0.50) mg/L Sodium 136 L (137-145) mmol/L Potassium 3.4 L (3.5-5.1) mmol/L Chloride 95 L (98-107) mmol/L Carbon Dioxide 34 H (22-30) mmol/L Anion Gap 9.9 (5-15) MEQ/L BUN 14 (7-17) mg/dL Creatinine 0.61 (0.52-1.04) mg/dL Estimated GFR > 60.0 ML/MIN Glucose 97 (74-106) mg/dL Lactic Acid (0.4-2.0) Calcium 9.8 (8.4-10.2) mg/dL Magnesium 1.6 (1.6-2.3) mg/dL Total Bilirubin 0.60 (0.2-1.3) mg/dL AST 37 H (14-36) U/L ALT 25 (0-35) U/L Alkaline Phosphatase 114 (38-126) U/L Troponin I (0.000-0.034) ng/mL NT-Pro-B Natriuret Pep 494 (0-900) pg/mL Serum Total Protein 8.0 (6.3-8.2) g/dL Albumin 4.5 (3.5-5.0) g/dL Urinalys Dipstick Clnc Urine Color (YELLOW) Urine Appearance (CLEAR) Urine pH (5-6) Ur Specific Franklin (1.005-1.025) POC Urine Protein Conf (Negative) Urine Ketones (NEGATIVE) Urine Nitrite (NEGATIVE) Urine Bilirubin (NEGATIVE) Urine Urobilinogen (0-1) mg/dL Urine Leukocytes (NEGATIVE) Urine WBC (Auto) (0-5) /HPF Urine RBC (Auto) (0-2) /HPF U Epithel Cells (Auto) (FEW) /HPF Urine Bacteria (Auto) (NEGATIVE) /HPF Urine RBC (0-5) Patricio/ul Ur Culture Indicated? Urine Glucose (NEGATIVE) mg/dL Influenza Type A Ag (NEGATIVE) Influenza Type B Ag (NEGATIVE) RSV (PCR) (Negative) SARS-CoV-2 (PCR) (NEGATIVE) 09/14/22 Range/Units 18:18 WBC (4.0-10.5) x10^3/uL RBC (4.1-5.4) x10^6/uL Hgb (12.0-16.0) g/dL Hct (35-47) % MCV (78-100) fL MCH (26-32) pg MCHC (32-36) g/dL RDW (11.5-14.0) % Plt Count (150-450) x10^3/uL MPV (7.5-11.0) fL Gran % (36.0-66.0) % Immature Gran % (Auto) (0.00-0.4) % Nucleat RBC Rel Count (0.00-0.1) % Eos # (Auto) (0-0.5) x10^3/uL Immature Gran # (Auto) (0.00-0.03) x10^3u/L Absolute Lymphs (auto) (1.0-4.6) x10^3/uL Absolute Monos (auto) (0.0-1.3) x10^3/uL Absolute Nucleated RBC (0.00-0.01) x10^3u/L Lymphocytes % (24.0-44.0) % Monocytes % (0.0-12.0) % Eosinophils % (0.00-5.0) % Basophils % (0.0-0.4) % Absolute Granulocytes (1.4-6.9) x10^3/uL Basophils # (0-0.4) x10^3/uL D-Dimer (0.0-0.50) mg/L Sodium (137-145) mmol/L Potassium (3.5-5.1) mmol/L Chloride (98-107) mmol/L Carbon Dioxide (22-30) mmol/L Anion Gap (5-15) MEQ/L BUN (7-17) mg/dL Creatinine (0.52-1.04) mg/dL Estimated GFR ML/MIN Glucose (74-106) mg/dL Lactic Acid 1.2 (0.4-2.0) Calcium (8.4-10.2) mg/dL Magnesium (1.6-2.3) mg/dL Total Bilirubin (0.2-1.3) mg/dL AST (14-36) U/L ALT (0-35) U/L Alkaline Phosphatase (38-126) U/L Troponin I (0.000-0.034) ng/mL NT-Pro-B Natriuret Pep (0-900) pg/mL Serum Total Protein (6.3-8.2) g/dL Albumin (3.5-5.0) g/dL Urinalys Dipstick Clnc Urine Color (YELLOW) Urine Appearance (CLEAR) Urine pH (5-6) Ur Specific Franklin (1.005-1.025) POC Urine Protein Conf (Negative) Urine Ketones (NEGATIVE) Urine Nitrite (NEGATIVE) Urine Bilirubin (NEGATIVE) Urine Urobilinogen (0-1) mg/dL Urine Leukocytes (NEGATIVE) Urine WBC (Auto) (0-5) /HPF Urine RBC (Auto) (0-2) /HPF U Epithel Cells (Auto) (FEW) /HPF Urine Bacteria (Auto) (NEGATIVE) /HPF Urine RBC (0-5) Patricio/ul Ur Culture Indicated? Urine Glucose (NEGATIVE) mg/dL Influenza Type A Ag (NEGATIVE) Influenza Type B Ag (NEGATIVE) RSV (PCR) (Negative) SARS-CoV-2 (PCR) (NEGATIVE) - Progress Progress: unchanged <REYNALDO BERGMAN - Last Filed: 09/14/22 18:43> - Progress Progress: improved Air Movement: good Blood Culture(s) Obtained: No Antibiotics given: No Discussed with : Prabhakar Counseled pt/family regarding: lab results, diagnosis, rad results <SHONDA DILL - Last Filed: 09/14/22 21:45> - Progress Progress Note: 09/14/22 21:28 Chest x-ray shows intrathoracic stomach. Otherwise no evidence of any acute car ana or pulmonary issues. Medical decision making: This patient presents with hypoxia and significant shortness of breath and cough. She does have an intrathoracic stomach present. In addition, she has improvement in her symptoms and hypoxia with the addition of 2 L of oxygen via nasal cannula. Her oxygenation saturation levels increased to 96 to 97% when on the oxygen. I spoke with Dr. Dominguez who is covering for unassigned patients at this time and he agrees with placing this patient in ob servation and providing her with oxygen supplementation, respiratory therapy treatments and repeat labs in the morning. (SHONDA DILL) - Departure Departure Disposition: Home Critical Care Time: No <REYNALDO BERGMAN - Last Filed: 09/14/22 18:43> - Departure Departure Disposition: Observation <SHONDA DILL - Last Filed: 09/14/22 21:45> - Departure Clinical Impression: Dyspnea, UTI (urinary tract infection), Hypoxia, Cough Condition: Fair Referrals: TYE BROWER MD [Primary Care Provider] - Follow up/PCP as directed
[2022-09-14 19:09] LABS: ALBUMIN 4.5 g/dL (3.5-5.0); ALKALINE PHOSPHATASE 114 U/L (38-126); ANION GAP 9.9 MEQ/L (5-15); BLOOD UREA NITROGEN 14 mg/dL (7-17); CHLORIDE 95 mmol/L (98-107); Calcium 9.8 mg/dL (8.4-10.2); Carbon Dioxide 34 mmol/L (22-30); Creatinine 1 0.61 mg/dL (0.52-1.04); EST GLOMERULAR FILTRATION RATE > 60.0 ML/MIN; Glucose 97 mg/dL (74-106); MAGNESIUM 1.6 mg/dL (1.6-2.3); NT PRO BNP 494 pg/mL (0-900); Potassium 3.4 mmol/L (3.5-5.1); SGOT/AST 37 U/L (14-36); SGPT/ALT 25 U/L (0-35); SODIUM 136 mmol/L (137-145)
[2022-09-14 19:22] LABS: INFLUENZA A NEGATIVE (NEGATIVE); INFLUENZA B NEGATIVE (NEGATIVE); RESPIRATORY SYNCTIAL VIRUS NEGATIVE (Negative); SARS-CoV-2 Xpert Express NEGATIVE (NEGATIVE)
[2022-09-14 20:47] LABS: Appearance CLEAR (CLEAR); Bilirubin NEGATIVE (NEGATIVE); Dipstick done @ ? MAIN LAB; Glucose NEGATIVE (NEGATIVE); Ketones NEGATIVE (NEGATIVE); Nitrite NEGATIVE (NEGATIVE); Ph 6.5 (5-6); Protein,Urine Dip NEGATIVE (Negative); RBC TRACE-INTACT Ery/ul (0-5); Urobilinogen 0.2 mg/dL (0-1)
[2022-09-14 21:09] LABS: Epithelial Cells RARE /HPF (FEW)
[2022-09-14 21:12] LABS: Urine Cultured Indicated? YES
[2022-09-14] MEDS ORDERED: ROCEPHIN 1 Gm-D5w 50 ml Bag** 1 G/50 ML IVPB IV STA (21:45)
[2022-09-14] MEDS ORDERED: ROCEPHIN 1 Gm-D5w 50 ml Bag** 1 G/50 ML IVPB IV ONE (21:49)
[2022-09-15] MEDS ORDERED: TYLENOL 325 MG PO PRN (00:26)
[2022-09-15] MEDS ORDERED: Sodium Chloride 0.9% 1000 ML 1,000 ML IV SCH (00:26)
[2022-09-15] MEDS ORDERED: Zofran 4 MG/2 ML VIAL IV PRN (00:26)
[2022-09-15] MEDS ORDERED: XARELTO 10 MG TABLET ONE (02:07)
[2022-09-15] MEDS ORDERED: DUONEB 0.5-3 MG/3 ml Neb IH PRN (02:53)
[2022-09-15 03:02] LABS: Absolute Neutrophil Ct (ANC) 3.82 x10^3/uL (1.4-6.9); Basophil (Absolute #) 0.01 x10^3/uL (0-0.4); Eosinophil % 0.2 % (0.00-5.0); Eosinophil (Absolute #) 0.01 x10^3/uL (0-0.5); Hematocrit 40.2 % (35-47); Lymphocyte (Absolute #) 0.55 x10^3/uL (1.0-4.6); Lymphocytes % 12.4 % (24.0-44.0); Mean Cell Volume 90.1 fL (78-100); Mean Corpuscular Hemoglobin 29.1 pg (26-32); Mean Corpuscular Hgb Concent. 32.3 g/dL (32-36); Mean Platelet Volume 11.5 fL (7.5-11.0); Monocyte (Absolute #) 0.03 x10^3/uL (0.0-1.3); Monocytes % 0.7 % (0.0-12.0); Neutrophil % 85.8 % (36.0-66.0); Platelet Count 268 x10^3/uL (150-450); Red Blood Count 4.46 x10^6/uL (4.1-5.4); Red Cell Distribution Width 12.8 % (11.5-14.0); White Blood Count 4.5 x10^3/uL (4.0-10.5)
[2022-09-15 03:23] LABS: ALKALINE PHOSPHATASE 94 U/L (38-126); ANION GAP 8.3 MEQ/L (5-15); BLOOD UREA NITROGEN 13 mg/dL (7-17); CHLORIDE 95 mmol/L (98-107); Calcium 9.1 mg/dL (8.4-10.2); Carbon Dioxide 34 mmol/L (22-30); Creatinine 1 0.55 mg/dL (0.52-1.04); EST GLOMERULAR FILTRATION RATE > 60.0 ML/MIN; Glucose 192 mg/dL (74-106); NT PRO BNP 358 pg/mL (0-900); Potassium 3.6 mmol/L (3.5-5.1); SGOT/AST 35 U/L (14-36); SGPT/ALT 24 U/L (0-35); SODIUM 134 mmol/L (137-145); Total Protein 7.4 g/dL (6.3-8.2)
[2022-09-15] MEDS ORDERED: NON-FORMULARY ITEM SL SCH (08:00)
[2022-09-15 08:25] LABS: Slide Review 1 YES
--- NOTE | 2022-09-15 08:39 | XRAY ---
Indication: Short of breath. Comparison: None Portable chest hyperinflated with large hiatal hernia and partial intrathoracic stomach with subsequent medial left base compressive atelectasis. Remaining heart and lungs unremarkable. Bony thorax intact with osteopenia, degenerative changes, and moderate levorotoscoliosis.
[2022-09-15 12:09] VITALS: BP 119/64; PULSE 82; O2SAT 93
--- NOTE | 2022-09-15 18:18 | PCM.SSS ---
History of Present Illness - Chief Complaint Chief Complaint: shortness of breath for 1-2 days History of Present Illness: is a 67 year old female.brought to the ER by her , braon mcadams, denies pain at this time, skin n/w/d, family had all been sick 2 weeks ago and she didn't get over it, pulses normal, placed 2L NC due to oxygen running at 93% and is now at 96-97% Timing/Duration: week(s) (2) Activities at Onset: none Severity of Dyspnea-Max: moderate Severity of Dyspnea-Current: moderate Possible Cause: no prior episodes Modifying Factors: Improves With: coughing Associated Symptoms: cough, No fever, No chills Hx Influenza Vaccination/Date Given: No Hx Pneumococcal Vaccination/Date Given: No - Review of Systems Constitutional: No Fever, No Chills Eyes: No Symptoms Ears, Nose, & Throat: No Symptoms Respiratory: Short Of Breath, No Cough Cardiac: No Chest Pain, No Edema, No Syncope Abdominal/Gastrointestinal: No Abdominal Pain, No Nausea, No Vomiting, No Diarrhea Genitourinary Symptoms: No Dysuria Musculoskeletal: No Back Pain, No Neck Pain Skin: No Rash Neurological: No Dizziness, No Focal Weakness, No Sensory Changes Psychological: No Symptoms Endocrine: No Symptoms Hematologic/Lymphatic: No Symptoms Immunological/Allergic: No Symptoms Medications & Allergies Home Medications: Home Medication List Buprenorphine HCl/Naloxone HCl [Suboxone 8 mg-2 mg Sl Film] 8 mg SL TID 01/24/18 [History Confirmed 09/14/22] PANTOPRAZOLE 40 mg Tablet [Protonix 40MG Tablet] 40 mg PO DAILY 01/24/18 [History Confirmed 09/14/22] Trazodone HCl 50 mg [Desyrel 50 mg] 150 mg PO DAILY 01/24/18 [History Confirmed 09/14/22] lamoTRIgine [Lamictal] 25 mg PO DAILY 01/24/18 [History Confirmed 09/14/22] raNITIdine HCL [Taladine] 150 mg PO DAILY 01/24/18 [History Confirmed 09/14/22] ARIPiprazole [Aripiprazole] 2 mg PO HS 10/15/21 [History Confirmed 09/14/22] Famotidine 40 mg PO DAILY 10/15/21 [History Confirmed 09/14/22] Rivaroxaban 10 mg Tablet [Xarelto 10 mg Tablet] 10 mg PO DAILY 10/15/21 [History Confirmed 09/14/22] Sertraline HCl [Zoloft] 100 mg PO DAILY 10/15/21 [History Confirmed 09/14/22] cephALEXin [Cephalexin] 500 mg PO QID 7 Days #28 tablet 09/15/22 [Rx] Allergies/Adverse Reactions: Allergies Allergy/AdvReac Type Severity Reaction Status Date / Time pregabalin [From Lyrica] Allergy Intermediate Rash Verified 09/14/22 18:10 erythromycin base Allergy Verified 09/14/22 18:10 - Past Medical History Past Medical History: Yes Neurological History: No Pertinent History ENT History: No Pertinent History Cardiac History: No Pertinent History Respiratory History: No Pertinent History Endocrine Medical History: No Pertinent History Musculoskelatal History: Arthritis, Fibromyalgia GI Medical History: GERD History: No Pertinent History Pyscho-Social History: No Pertinent History Reproductive Disorders: No Pertinent History Comment: hiatal hernia, constipation, edema, coagulopathy, osteomalacia, osteopenia, scoliosis - Female History Are you now?: No - Past Surgical History Past Surgical History: Yes Neuro Surgical History: No Pertinent History Cardiac History: No Pertinent History Respiratory Surgery: No Pertinent History GI Surgical History: Hernia Repair Genitourinary Surgical Hx: No Pertinent History Musculskeletal Surgical Hx: No Pertinent History Female Surgical History: Hysterectomy - Social History Smoking Status: Never smoker Exposure to second hand smoke: No Alcohol: None Drug Use: none - Physical Exam Vital Signs: Vital Signs - 24 hr Temp Pulse Resp BP Pulse Ox 09/15/22 12:00 98.4 F 82 18 119/64 93 L 09/15/22 08:23 104 H 18 90 L 09/15/22 08:00 96.8 F 104 H 18 109/63 90 L 09/15/22 04:00 97.8 F 104 H 20 113/59 93 L 09/15/22 01:30 93 H 18 93 L 09/15/22 00:31 98.6 F 97 H 18 132/68 94 L 09/14/22 23:05 84 16 134/92 95 09/14/22 22:08 98 H 18 146/94 93 L 09/14/22 20:47 88 18 147/93 95 09/14/22 19:50 100 H 18 90 L 09/14/22 18:49 96 09/14/22 18:32 100 H 18 96 General Appearance: no apparent distress, alert Neurologic Exam: alert, oriented x 3, cooperative, normal mood/affect, nml cerebellar function, nml station & gait, sensation nml, No motor deficits Eye Exam: PERRL/EOMI, eyes nml inspection Ears, Nose, Throat Exam: normal ENT inspection, TMs normal, pharynx normal, moist mucous membranes Neck Exam: normal inspection, non-tender, supple, full range of motion Respiratory Exam: normal breath sounds, lungs clear, No respiratory distress Cardiovascular Exam: regular rate/rhythm, normal heart sounds, normal peripheral pulses Gastrointestinal/Abdomen Exam: soft, normal bowel sounds, No tenderness, No mass Back Exam: normal inspection, normal range of motion, No CVA tenderness, No vertebral tenderness Extremity Exam: normal inspection, normal range of motion, pelvis stable Skin Exam: normal color, warm, dry, No rash Lymphatic Exam: No adenopathy Results - Labs Lab/Micro Results: Lab Results-Last 24 Hours 09/14/22 09/14/22 09/14/22 Range/Units 18:18 18:39 18:39 WBC 6.4 (4.0-10.5) x10^3/uL RBC 4.54 (4.1-5.4) x10^6/uL Hgb 13.1 (12.0-16.0) g/dL Hct 40.5 (35-47) % MCV 89.2 (78-100) fL MCH 28.9 (26-32) pg MCHC 32.3 (32-36) g/dL RDW 12.8 (11.5-14.0) % Plt Count 270 (150-450) x10^3/uL MPV 11.1 H (7.5-11.0) fL Gran % 69.1 H (36.0-66.0) % Immature Gran % (Auto) 0.3 (0.00-0.4) % Nucleat RBC Rel Count 0.0 (0.00-0.1) % Eos # (Auto) 0.01 (0-0.5) x10^3/uL Immature Gran # (Auto) 0.02 (0.00-0.03) x10^3u/L Absolute Lymphs (auto) 1.29 (1.0-4.6) x10^3/uL Absolute Monos (auto) 0.63 (0.0-1.3) x10^3/uL Absolute Nucleated RBC 0.00 (0.00-0.01) x10^3u/L Lymphocytes % 20.2 L (24.0-44.0) % Monocytes % 9.9 (0.0-12.0) % Eosinophils % 0.2 (0.00-5.0) % Basophils % 0.3 (0.0-0.4) % Absolute Granulocytes 4.42 (1.4-6.9) x10^3/uL Basophils # 0.02 (0-0.4) x10^3/uL D-Dimer (0.0-0.50) mg/L Sodium 136 L (137-145) mmol/L Potassium 3.4 L (3.5-5.1) mmol/L Chloride 95 L (98-107) mmol/L Carbon Dioxide 34 H (22-30) mmol/L Anion Gap 9.9 (5-15) MEQ/L BUN 14 (7-17) mg/dL Creatinine 0.61 (0.52-1.04) mg/dL Estimated GFR > 60.0 ML/MIN Glucose 97 (74-106) mg/dL Lactic Acid 1.2 (0.4-2.0) Calcium 9.8 (8.4-10.2) mg/dL Magnesium 1.6 (1.6-2.3) mg/dL Total Bilirubin 0.60 (0.2-1.3) mg/dL AST 37 H (14-36) U/L ALT 25 (0-35) U/L Alkaline Phosphatase 114 (38-126) U/L Troponin I (0.000-0.034) ng/mL NT-Pro-B Natriuret Pep 494 (0-900) pg/mL Serum Total Protein 8.0 (6.3-8.2) g/dL Albumin 4.5 (3.5-5.0) g/dL Urinalys Dipstick Clnc Urine Color (YELLOW) Urine Appearance (CLEAR) Urine pH (5-6) Ur Specific [place] (1.005-1.025) POC Urine Protein Conf (Negative) Urine Ketones (NEGATIVE) Urine Nitrite (NEGATIVE) Urine Bilirubin (NEGATIVE) Urine Urobilinogen (0-1) mg/dL Urine Leukocytes (NEGATIVE) Urine WBC (Auto) (0-5) /HPF Urine RBC (Auto) (0-2) /HPF U Epithel Cells (Auto) (FEW) /HPF Urine Bacteria (Auto) (NEGATIVE) /HPF Urine RBC (0-5) Patricio/ul Ur Culture Indicated? Urine Glucose (NEGATIVE) mg/dL Influenza Type A Ag (NEGATIVE) Influenza Type B Ag (NEGATIVE) RSV (PCR) (Negative) SARS-CoV-2 (PCR) (NEGATIVE) Slides for Path Review 09/14/22 09/14/22 09/14/22 Range/Units 18:39 18:39 18:39 WBC (4.0-10.5) x10^3/uL RBC (4.1-5.4) x10^6/uL Hgb (12.0-16.0) g/dL Hct (35-47) % MCV (78-100) fL MCH (26-32) pg MCHC (32-36) g/dL RDW (11.5-14.0) % Plt Count (150-450) x10^3/uL MPV (7.5-11.0) fL Gran % (36.0-66.0) % Immature Gran % (Auto) (0.00-0.4) % Nucleat RBC Rel Count (0.00-0.1) % Eos # (Auto) (0-0.5) x10^3/uL Immature Gran # (Auto) (0.00-0.03) x10^3u/L Absolute Lymphs (auto) (1.0-4.6) x10^3/uL Absolute Monos (auto) (0.0-1.3) x10^3/uL Absolute Nucleated RBC (0.00-0.01) x10^3u/L Lymphocytes % (24.0-44.0) % Monocytes % (0.0-12.0) % Eosinophils % (0.00-5.0) % Basophils % (0.0-0.4) % Absolute Granulocytes (1.4-6.9) x10^3/uL Basophils # (0-0.4) x10^3/uL D-Dimer < 0.19 (0.0-0.50) mg/L Sodium (137-145) mmol/L Potassium (3.5-5.1) mmol/L Chloride (98-107) mmol/L Carbon Dioxide (22-30) mmol/L Anion Gap (5-15) MEQ/L BUN (7-17) mg/dL Creatinine (0.52-1.04) mg/dL Estimated GFR ML/MIN Glucose (74-106) mg/dL Lactic Acid (0.4-2.0) Calcium (8.4-10.2) mg/dL Magnesium (1.6-2.3) mg/dL Total Bilirubin (0.2-1.3) mg/dL AST (14-36) U/L ALT (0-35) U/L Alkaline Phosphatase (38-126) U/L Troponin I < 0.012 (0.000-0.034) ng/mL NT-Pro-B Natriuret Pep (0-900) pg/mL Serum Total Protein (6.3-8.2) g/dL Albumin (3.5-5.0) g/dL Urinalys Dipstick Clnc Urine Color (YELLOW) Urine Appearance (CLEAR) Urine pH (5-6) Ur Specific [place] (1.005-1.025) POC Urine Protein Conf (Negative) Urine Ketones (NEGATIVE) Urine Nitrite (NEGATIVE) Urine Bilirubin (NEGATIVE) Urine Urobilinogen (0-1) mg/dL Urine Leukocytes (NEGATIVE) Urine WBC (Auto) (0-5) /HPF Urine RBC (Auto) (0-2) /HPF U Epithel Cells (Auto) (FEW) /HPF Urine Bacteria (Auto) (NEGATIVE) /HPF Urine RBC (0-5) Patricio/ul Ur Culture Indicated? Urine Glucose (NEGATIVE) mg/dL Influenza Type A Ag NEGATIVE (NEGATIVE) Influenza Type B Ag NEGATIVE (NEGATIVE) RSV (PCR) NEGATIVE (Negative) SARS-CoV-2 (PCR) NEGATIVE (NEGATIVE) Slides for Path Review 09/14/22 09/14/22 09/15/22 Range/Units 19:35 22:31 02:46 WBC (4.0-10.5) x10^3/uL RBC (4.1-5.4) x10^6/uL Hgb (12.0-16.0) g/dL Hct (35-47) % MCV (78-100) fL MCH (26-32) pg MCHC (32-36) g/dL RDW (11.5-14.0) % Plt Count (150-450) x10^3/uL MPV (7.5-11.0) fL Gran % (36.0-66.0) % Immature Gran % (Auto) (0.00-0.4) % Nucleat RBC Rel Count (0.00-0.1) % Eos # (Auto) (0-0.5) x10^3/uL Immature Gran # (Auto) (0.00-0.03) x10^3u/L Absolute Lymphs (auto) (1.0-4.6) x10^3/uL Absolute Monos (auto) (0.0-1.3) x10^3/uL Absolute Nucleated RBC (0.00-0.01) x10^3u/L Lymphocytes % (24.0-44.0) % Monocytes % (0.0-12.0) % Eosinophils % (0.00-5.0) % Basophils % (0.0-0.4) % Absolute Granulocytes (1.4-6.9) x10^3/uL Basophils # (0-0.4) x10^3/uL D-Dimer (0.0-0.50) mg/L Sodium (137-145) mmol/L Potassium (3.5-5.1) mmol/L Chloride (98-107) mmol/L Carbon Dioxide (22-30) mmol/L Anion Gap (5-15) MEQ/L BUN (7-17) mg/dL Creatinine (0.52-1.04) mg/dL Estimated GFR ML/MIN Glucose (74-106) mg/dL Lactic Acid (0.4-2.0) Calcium (8.4-10.2) mg/dL Magnesium (1.6-2.3) mg/dL Total Bilirubin (0.2-1.3) mg/dL AST (14-36) U/L ALT (0-35) U/L Alkaline Phosphatase (38-126) U/L Troponin I < 0.012 < 0.012 (0.000-0.034) ng/mL NT-Pro-B Natriuret Pep (0-900) pg/mL Serum Total Protein (6.3-8.2) g/dL Albumin (3.5-5.0) g/dL Urinalys Dipstick Clnc MAIN LAB Urine Color YELLOW (YELLOW) Urine Appearance CLEAR (CLEAR) Urine pH 6.5 (5-6) Ur Specific [place] 1.010 (1.005-1.025) POC Urine Protein Conf NEGATIVE (Negative) Urine Ketones NEGATIVE (NEGATIVE) Urine Nitrite NEGATIVE (NEGATIVE) Urine Bilirubin NEGATIVE (NEGATIVE) Urine Urobilinogen 0.2 (0-1) mg/dL Urine Leukocytes SMALL A (NEGATIVE) Urine WBC (Auto) 6-10 A (0-5) /HPF Urine RBC (Auto) 3-5 A (0-2) /HPF U Epithel Cells (Auto) RARE (FEW) /HPF Urine Bacteria (Auto) NONE (NEGATIVE) /HPF Urine RBC TRACE-INTACT A (0-5) Patricio/ul Ur Culture Indicated? YES Urine Glucose NEGATIVE (NEGATIVE) mg/dL Influenza Type A Ag (NEGATIVE) Influenza Type B Ag (NEGATIVE) RSV (PCR) (Negative) SARS-CoV-2 (PCR) (NEGATIVE) Slides for Path Review 09/15/22 09/15/22 Range/Units 02:46 02:46 WBC 4.5 (4.0-10.5) x10^3/uL RBC 4.46 (4.1-5.4) x10^6/uL Hgb 13.0 (12.0-16.0) g/dL Hct 40.2 (35-47) % MCV 90.1 (78-100) fL MCH 29.1 (26-32) pg MCHC 32.3 (32-36) g/dL RDW 12.8 (11.5-14.0) % Plt Count 268 (150-450) x10^3/uL MPV 11.5 H (7.5-11.0) fL Gran % 85.8 H (36.0-66.0) % Immature Gran % (Auto) 0.7 H (0.00-0.4) % Nucleat RBC Rel Count 0.0 (0.00-0.1) % Eos # (Auto) 0.01 (0-0.5) x10^3/uL Immature Gran # (Auto) 0.03 (0.00-0.03) x10^3u/L Absolute Lymphs (auto) 0.55 L (1.0-4.6) x10^3/uL Absolute Monos (auto) 0.03 (0.0-1.3) x10^3/uL Absolute Nucleated RBC 0.00 (0.00-0.01) x10^3u/L Lymphocytes % 12.4 L (24.0-44.0) % Monocytes % 0.7 (0.0-12.0) % Eosinophils % 0.2 (0.00-5.0) % Basophils % 0.2 (0.0-0.4) % Absolute Granulocytes 3.82 (1.4-6.9) x10^3/uL Basophils # 0.01 (0-0.4) x10^3/uL D-Dimer (0.0-0.50) mg/L Sodium 134 L (137-145) mmol/L Potassium 3.6 (3.5-5.1) mmol/L Chloride 95 L (98-107) mmol/L Carbon Dioxide 34 H (22-30) mmol/L Anion Gap 8.3 (5-15) MEQ/L BUN 13 (7-17) mg/dL Creatinine 0.55 (0.52-1.04) mg/dL Estimated GFR > 60.0 ML/MIN Glucose 192 H (74-106) mg/dL Lactic Acid (0.4-2.0) Calcium 9.1 (8.4-10.2) mg/dL Magnesium (1.6-2.3) mg/dL Total Bilirubin 0.40 (0.2-1.3) mg/dL AST 35 (14-36) U/L ALT 24 (0-35) U/L Alkaline Phosphatase 94 (38-126) U/L Troponin I (0.000-0.034) ng/mL NT-Pro-B Natriuret Pep 358 (0-900) pg/mL Serum Total Protein 7.4 (6.3-8.2) g/dL Albumin 4.0 (3.5-5.0) g/dL Urinalys Dipstick Clnc Urine Color (YELLOW) Urine Appearance (CLEAR) Urine pH (5-6) Ur Specific [place] (1.005-1.025) POC Urine Protein Conf (Negative) Urine Ketones (NEGATIVE) Urine Nitrite (NEGATIVE) Urine Bilirubin (NEGATIVE) Urine Urobilinogen (0-1) mg/dL Urine Leukocytes (NEGATIVE) Urine WBC (Auto) (0-5) /HPF Urine RBC (Auto) (0-2) /HPF U Epithel Cells (Auto) (FEW) /HPF Urine Bacteria (Auto) (NEGATIVE) /HPF Urine RBC (0-5) Patricio/ul Ur Culture Indicated? Urine Glucose (NEGATIVE) mg/dL Influenza Type A Ag (NEGATIVE) Influenza Type B Ag (NEGATIVE) RSV (PCR) (Negative) SARS-CoV-2 (PCR) (NEGATIVE) Slides for Path Review YES - Radiology Impressions Radiology Exams & Impressions: Radiology Procedures Category Date Time Status CHEST 1 VIEW (PORTABLE) Stat Exams 09/14/22 18:03 Completed Assessment/Plan (1) Acute UTI Status: Acute Assessment & Plan: Chief Complaint Diagnosis hypoxia, uti Allergies Allergy/AdvReac Type Severity Reaction Status Date / Time pregabalin [From Lyrica] Allergy Intermediate Rash Verified 09/14/22 18:10 erythromycin base Allergy Verified 09/14/22 18:10 Vital Signs (Last 24 hours) Temp Pulse Resp BP Pulse Ox 09/15/22 12:00 98.4 F 82 18 119/64 93 L 09/15/22 08:23 104 H 18 90 L 09/15/22 08:00 96.8 F 104 H 18 109/63 90 L 09/15/22 04:00 97.8 F 104 H 20 113/59 93 L 09/15/22 01:30 93 H 18 93 L 09/15/22 00:31 98.6 F 97 H 18 132/68 94 L 09/14/22 23:05 84 16 134/92 95 09/14/22 22:08 98 H 18 146/94 93 L 09/14/22 20:47 88 18 147/93 95 09/14/22 19:50 100 H 18 90 L 09/14/22 18:49 96 09/14/22 18:32 100 H 18 96 Home Medications Medication Instructions Recorded Confirmed Last Taken Type cephALEXin [Cephalexin] 500 mg PO QID 7 Days #28 tablet 09/15/22 Unknown Rx Current Medications Discontinued Medications Generic Name Dose Route Start Last Admin Trade Name Freq PRN Reason Stop Dose Admin Acetaminophen 650 mg 09/15/22 00:26 09/15/22 01:35 Acetaminophen 325 Mg Tablet PO 10/15/22 00:25 650 mg Q4H PRN PRN Administration PAIN, FEVER, HEADACHE Albuterol/Ipratropium 3 ml 09/14/22 18:02 09/14/22 18:32 Ipratropium/Albuterol Sulfate 3 Ml Ampul.Neb 09/14/22 18:03 3 ml STAT ONE Administration Albuterol/Ipratropium Confirm 09/14/22 18:29 Ipratropium/Albuterol Sulfate 3 Ml Ampul.Neb Administered 09/14/22 18:30 Dose 3 ml IH .STK-MED ONE Albuterol/Ipratropium 3 ml 09/15/22 02:53 Ipratropium/Albuterol Sulfate 3 Ml Ampul.Neb 10/15/22 02:52 Q4HPRN PRN SHORTNESS OF BREATH/WHEEZING Methylprednisolone Sodium 0 mg 09/14/22 18:02 09/14/22 18:24 Succinate 125 mg/ Sterile IV 09/14/22 18:03 125 mg Water 2 ml STAT ONE Administration Ceftriaxone Sodium/Dextrose 1 g in 50 mls @ 100 mls/hr 09/14/22 21:45 09/14/22 22:47 Rocephin 1 Gm-D5w 50 Ml Bag IV 09/14/22 22:14 Infused STAT STA Infusion Ceftriaxone Sodium/Dextrose Confirm 09/14/22 21:49 Rocephin 1 Gm-D5w 50 Ml Bag Administered 09/14/22 21:50 Dose 1 g in 50 mls @ ud IV .STK-MED ONE Sodium Chloride 1,000 mls @ 50 mls/hr 09/15/22 00:26 09/15/22 02:22 Sodium Chloride 0.9% 1000 Ml IV 10/15/22 00:25 50 mls/hr .Q20H YASHIRA Administration Ceftriaxone Sodium/Dextrose 1 g in 50 mls @ 100 mls/hr 09/15/22 22:00 Rocephin 1 Gm-D5w 50 Ml Bag IV 09/18/22 21:59 Q24H22 YASHIRA Methylprednisolone Sodium Succinate Confirm 09/14/22 18:22 Methylprednis Sod Succ 125 Mg/2 Ml Vial Administered 09/14/22 18:23 Dose 125 mg .ROUTE .STK-MED ONE Non-Formulary Medication 6 each 09/15/22 08:00 09/15/22 13:44 Non-Formulary Drug 1 Each Each SL 10/15/22 07:59 6 each BREAKFAST YASHIRA Administration Non-Formulary Medication 8 each 09/15/22 22:00 Non-Formulary Drug 1 Each Each SL 10/15/22 21:59 HS YASHIRA Ondansetron HCl 4 mg 09/15/22 00:26 Ondansetron Hcl 4 Mg/2 Ml Vial IV 10/15/22 00:25 Q6H PRN PRN NAUSEA/VOMITING Rivaroxaban 10 mg 09/15/22 22:00 09/15/22 02:15 Rivaroxaban 10 Mg Tablet PO 10/15/22 21:59 10 mg HS YASHIRA Administration Rivaroxaban Confirm 09/15/22 02:07 Rivaroxaban 10 Mg Tablet Administered 09/15/22 02:08 Dose 10 mg .ROUTE .STK-MED ONE Sterile Water Confirm 09/14/22 18:22 Water For Injection,Sterile 10 Ml Vial Administered 09/14/22 18:23 Dose 10 ml IJ .STK-MED ONE Trazodone HCl 150 mg 09/15/22 22:00 Trazodone Hcl 150 Mg Tablet PO 10/15/22 21:59 HS YASHIRA Intake & Output (Last 24 hours) 09/13/22 09/14/22 09/15/22 09/16/22 11:59 11:59 11:59 11:59 Intake Total 440 240 Balance 440 240 Weight 61.4 kg Microbiology Results (Last 24 hours) 09/14/22 19:35 Clean Catch Midstream Urine Culture - Pending 09/14/22 18:39 Blood Blood Culture Gram Stain - Pending 09/14/22 18:39 Blood Blood Culture - Pending 09/14/22 18:39 Blood Blood Culture Gram Stain - Pending 09/14/22 18:39 Blood Blood Culture - Pending Laboratory Results (Last 24 hours) 09/15/22 09/15/22 09/15/22 02:46 02:46 02:46 WBC 4.5 RBC 4.46 Hgb 13.0 Hct 40.2 MCV 90.1 MCH 29.1 MCHC 32.3 RDW 12.8 Plt Count 268 MPV 11.5 H Gran % 85.8 H Immature Gran % (Auto) 0.7 H Nucleat RBC Rel Count 0.0 Eos # (Auto) 0.01 Immature Gran # (Auto) 0.03 Absolute Lymphs (auto) 0.55 L Absolute Monos (auto) 0.03 Absolute Nucleated RBC 0.00 Lymphocytes % 12.4 L Monocytes % 0.7 Eosinophils % 0.2 Basophils % 0.2 Absolute Granulocytes 3.82 Basophils # 0.01 D-Dimer Sodium 134 L Potassium 3.6 Chloride 95 L Carbon Dioxide 34 H Anion Gap 8.3 BUN 13 Creatinine 0.55 Estimated GFR > 60.0 Glucose 192 H Lactic Acid Calcium 9.1 Magnesium Total Bilirubin 0.40 AST 35 ALT 24 Alkaline Phosphatase 94 Troponin I < 0.012 NT-Pro-B Natriuret Pep 358 Serum Total Protein 7.4 Albumin 4.0 Urinalys Dipstick Clnc Urine Color Urine Appearance Urine pH Ur Specific [place] POC Urine Protein Conf Urine Ketones Urine Nitrite Urine Bilirubin Urine Urobilinogen Urine Leukocytes Urine WBC (Auto) Urine RBC (Auto) U Epithel Cells (Auto) Urine Bacteria (Auto) Urine RBC Ur Culture Indicated? Urine Glucose Influenza Type A Ag Influenza Type B Ag RSV (PCR) SARS-CoV-2 (PCR) Slides for Path Review YES 09/14/22 09/14/22 09/14/22 22:31 19:35 18:39 WBC RBC Hgb Hct MCV MCH MCHC RDW Plt Count MPV Gran % Immature Gran % (Auto) Nucleat RBC Rel Count Eos # (Auto) Immature Gran # (Auto) Absolute Lymphs (auto) Absolute Monos (auto) Absolute Nucleated RBC Lymphocytes % Monocytes % Eosinophils % Basophils % Absolute Granulocytes Basophils # D-Dimer Sodium Potassium Chloride Carbon Dioxide Anion Gap BUN Creatinine Estimated GFR Glucose Lactic Acid Calcium Magnesium Total Bilirubin AST ALT Alkaline Phosphatase Troponin I < 0.012 NT-Pro-B Natriuret Pep Serum Total Protein Albumin Urinalys Dipstick Clnc MAIN LAB Urine Color YELLOW Urine Appearance CLEAR Urine pH 6.5 Ur Specific [place] 1.010 POC Urine Protein Conf NEGATIVE Urine Ketones NEGATIVE Urine Nitrite NEGATIVE Urine Bilirubin NEGATIVE Urine Urobilinogen 0.2 Urine Leukocytes SMALL A Urine WBC (Auto) 6-10 A Urine RBC (Auto) 3-5 A U Epithel Cells (Auto) RARE Urine Bacteria (Auto) NONE Urine RBC TRACE-INTACT A Ur Culture Indicated? YES Urine Glucose NEGATIVE Influenza Type A Ag NEGATIVE Influenza Type B Ag NEGATIVE RSV (PCR) NEGATIVE SARS-CoV-2 (PCR) NEGATIVE Slides for Path Review 09/14/22 09/14/22 09/14/22 18:39 18:39 18:39 WBC RBC Hgb Hct MCV MCH MCHC RDW Plt Count MPV Gran % Immature Gran % (Auto) Nucleat RBC Rel Count Eos # (Auto) Immature Gran # (Auto) Absolute Lymphs (auto) Absolute Monos (auto) Absolute Nucleated RBC Lymphocytes % Monocytes % Eosinophils % Basophils % Absolute Granulocytes Basophils # D-Dimer < 0.19 Sodium 136 L Potassium 3.4 L Chloride 95 L Carbon Dioxide 34 H Anion Gap 9.9 BUN 14 Creatinine 0.61 Estimated GFR > 60.0 Glucose 97 Lactic Acid Calcium 9.8 Magnesium 1.6 Total Bilirubin 0.60 AST 37 H ALT 25 Alkaline Phosphatase 114 Troponin I < 0.012 NT-Pro-B Natriuret Pep 494 Serum Total Protein 8.0 Albumin 4.5 Urinalys Dipstick Clnc Urine Color Urine Appearance Urine pH Ur Specific [place] POC Urine Protein Conf Urine Ketones Urine Nitrite Urine Bilirubin Urine Urobilinogen Urine Leukocytes Urine WBC (Auto) Urine RBC (Auto) U Epithel Cells (Auto) Urine Bacteria (Auto) Urine RBC Ur Culture Indicated? Urine Glucose Influenza Type A Ag Influenza Type B Ag RSV (PCR) SARS-CoV-2 (PCR) Slides for Path Review 09/14/22 09/14/22 18:39 18:18 WBC 6.4 RBC 4.54 Hgb 13.1 Hct 40.5 MCV 89.2 MCH 28.9 MCHC 32.3 RDW 12.8 Plt Count 270 MPV 11.1 H Gran % 69.1 H Immature Gran % (Auto) 0.3 Nucleat RBC Rel Count 0.0 Eos # (Auto) 0.01 Immature Gran # (Auto) 0.02 Absolute Lymphs (auto) 1.29 Absolute Monos (auto) 0.63 Absolute Nucleated RBC 0.00 Lymphocytes % 20.2 L Monocytes % 9.9 Eosinophils % 0.2 Basophils % 0.3 Absolute Granulocytes 4.42 Basophils # 0.02 D-Dimer Sodium Potassium Chloride Carbon Dioxide Anion Gap BUN Creatinine Estimated GFR Glucose Lactic Acid 1.2 Calcium Magnesium Total Bilirubin AST ALT Alkaline Phosphatase Troponin I NT-Pro-B Natriuret Pep Serum Total Protein Albumin Urinalys Dipstick Clnc Urine Color Urine Appearance Urine pH Ur Specific [place] POC Urine Protein Conf Urine Ketones Urine Nitrite Urine Bilirubin Urine Urobilinogen Urine Leukocytes Urine WBC (Auto) Urine RBC (Auto) U Epithel Cells (Auto) Urine Bacteria (Auto) Urine RBC Ur Culture Indicated? Urine Glucose Influenza Type A Ag Influenza Type B Ag RSV (PCR) SARS-CoV-2 (PCR) Slides for Path Review Orders (Last 24 hours) Category Date Time Status Bedrest TOLERATED Activity 09/15/22 00:26 Completed Code Status Order ROUTINE Care 09/15/22 00:26 Completed EKG-ER Only STAT Care 09/14/22 18:02 Completed Elevate HOB TOLERATED Care 09/15/22 00:26 Completed IV Insertion STAT Care 09/14/22 18:02 Completed Oxygen-ED Only Nasal Cannula 2 lpm Care 09/14/22 18:[address] in Observation ROUTINE Care 09/15/22 00:26 Completed Heart-Healthy Diet Diet 09/15/22 Breakfast Completed Discharge Routine Discharge 09/15/22 13:14 Ordered CHEST 1 VIEW (PORTABLE) Stat Exams 09/14/22 18:03 Completed BLOOD CULTURE Stat Lab 09/14/22 18:39 Received CBC W DIFF AM.LAB Lab 09/15/22 02:46 Completed CBC W DIFF Stat Lab 09/14/22 18:39 Completed CMP AM.LAB Lab 09/15/22 02:46 Completed CMP Stat Lab 09/14/22 18:39 Completed COVID/FLU/RSV Panel Stat Lab 09/14/22 18:39 Completed CULTURE,URINE Stat Lab 09/14/22 19:35 Received D-DIMER QUANTITATIVE Stat Lab 09/14/22 18:39 Completed Lactic Acid Stat Lab 09/14/22 18:18 Completed MAGNESIUM Stat Lab 09/14/22 18:39 Completed NT PRO BNP AM.LAB Lab 09/15/22 02:46 Completed NT PRO BNP Stat Lab 09/14/22 18:39 Completed TROPONIN Q4H Lab 09/14/22 18:39 Completed TROPONIN Q4H Lab 09/14/22 22:31 Completed TROPONIN Q4H Lab 09/15/22 02:46 Completed UA W/RFX CULTURE Stat Lab 09/14/22 19:35 Completed Acetaminophen 325 mg [Tylenol 325 mg] Med 09/15/22 00:26 Discontinued 650 mg PO Q4H PRN PRN Albuterol/Ipratropium 3ml Neb* [DUONEB 0.5-3 MG/3 ml Med 09/14/22 18:29 Discontinued Neb] 3 ml IH .STK-MED ONE Albuterol/Ipratropium 3ml Neb* [DUONEB 0.5-3 MG/3 ml Med 09/15/22 02:53 Discontinued Neb] 3 ml IH Q4HPRN PRN Albuterol/Ipratropium 3ml Neb* [DUONEB 0.5-3 MG/3 ml Med 09/14/22 18:02 Discontinued Neb] 3 ml IH STAT ONE Ceftriaxone 1 GM/50 ML PREMIX* [ROCEPHIN 1 Gm-D5w 50 ml Med 09/15/22 22:00 D iscontinued Bag] 1 g in 50 ml IV Q24H22 Ceftriaxone 1 GM/50 ML PREMIX* [ROCEPHIN 1 Gm-D5w 50 ml Med 09/14/22 21:45 Discontinued Bag] 1 g in 50 ml IV STAT Ceftriaxone 1 GM/50 ML PREMIX* [ROCEPHIN 1 Gm-D5w 50 ml Med 09/14/22 21:49 Discontinued Bag] 1 g in 50 ml IV UD Methylprednis Sod Succ 125 mg* [solu-MEDROL] Med 09/14/22 18:22 Discontinued 125 mg .ROUTE .STK-MED ONE Methylprednis Sod Succ 125 mg* [solu-MEDROL] 125 mg Med 09/14/22 18:02 Di scontinued Water For Injection,Sterile [Sterile H2O 10 ml] 2 ml IV STAT NaCl 0.9% 1000 ml [Sodium Chloride 0.9% 1000 ML] 1,000 Med 09/15/22 00:26 Discontinued ml IV 50 mls/hr Non-Formulary Drug [Non-Formulary Bulk Item] Med 09/15/22 22:00 Discontinued 8 each SL HS Non-Formulary Drug [Non-Formulary Item] Med 09/15/22 08:00 Discontinued 6 each SL BREAKFAST Ondansetron HCl 4 mg/2 ml [Zofran 4 MG/2 ML VIAL] Med 09/15/22 00:26 Discontinued 4 mg IV Q6H PRN PRN Rivaroxaban 10 mg Tablet [Xarelto 10 mg Tablet] Med 09/15/22 02:07 Discontinued 10 mg .ROUTE .STK-MED ONE Rivaroxaban 10 mg Tablet [Xarelto 10 mg Tablet] Med 09/15/22 22:00 Discontinued 10 mg PO HS Trazodone HCl 150 mg [Desyrel 150 MG] Med 09/15/22 22:00 Discontinued 150 mg PO HS Water For Injection,Sterile [Sterile H2O 10 ml] Med 09/14/22 18:22 Discontinued 10 ml IJ .STK-MED ONE Oxygen Nasal Cannula 2 lpm RT 09/15/22 00:26 Completed Pulse Oximetry .spot check RT 09/15/22 01:33 Completed Qualify for Home Oxygen TODAY RT 09/15/22 13:16 Completed Respiratory Therapy Assessment DAILY RT 09/14/22 18:32 Completed Respiratory Therapy Consult ROUTINE RT 09/15/22 00:26 Completed Patient Care Notes (Last 24 hours) 09/15/22 13:54 Case Management Note by Sharonda Godfrey PRIMARY RN GIVEN PULSE OX TO SEND HOME WITH PATIENT AT TIME OF DC Initialized on 09/15/22 13:54 - END OF NOTE 09/15/22 13:54 Respiratory Note by Juany Moe PT'S O2 SAT ON ROOM AIR WHILE AT REST WAS 94%. PT'S O2 SAT ON ROOM AIR WHILE WALKING WAS 92%. Initialized on 09/15/22 13:54 - END OF NOTE 09/15/22 02:06 Nursing Note by Isis Parada suboxone sublingual verified for pharmacy for use of patient home med. Initialized on 09/15/22 02:06 - END OF NOTE Code(s): N39.0 - URINARY TRACT INFECTION, SITE NOT SPECIFIED (2) Acute viral syndrome Status: Acute Code(s): B34.9 - VIRAL INFECTION, UNSPECIFIED (3) Hypoxia Status: Acute Code(s): R09.02 - HYPOXEMIA Hospital Summary - Hospital Course Hospital Course: Last Vital Signs Temp 98.4 F 09/15/22 12:00 Pulse 82 09/15/22 12:00 Resp 18 09/15/22 12:00 BP 119/64 09/15/22 12:00 Pulse Ox 93 L 09/15/22 12:00 Allergies pregabalin [From Lyrica] Allergy (Intermediate, Verified 09/14/22 18:10) Rash erythromycin base Allergy (Verified 09/14/22 18:10) hives Intake & Output 09/15/22 09/16/22 11:59 11:59 Intake Total 440 240 Balance 440 240 Weight 61.4 kg Orders 09/15/22 13:14 Discharge Routine Lab Tests 09/14/22 09/14/22 09/14/22 18:18 18:39 18:39 WBC 6.4 RBC 4.54 Hgb 13.1 Hct 40.5 MCV 89.2 MCH 28.9 MCHC 32.3 RDW 12.8 Plt Count 270 MPV 11.1 H Gran % 69.1 H Immature Gran % (Auto) 0.3 Nucleat RBC Rel Count 0.0 Eos # (Auto) 0.01 Immature Gran # (Auto) 0.02 Absolute Lymphs (auto) 1.29 Absolute Monos (auto) 0.63 Absolute Nucleated RBC 0.00 Lymphocytes % 20.2 L Monocytes % 9.9 Eosinophils % 0.2 Basophils % 0.3 Absolute Granulocytes 4.42 Basophils # 0.02 D-Dimer Sodium 136 L Potassium 3.4 L Chloride 95 L Carbon Dioxide 34 H Anion Gap 9.9 BUN 14 Creatinine 0.61 Estimated GFR > 60.0 Glucose 97 Lactic Acid 1.2 Calcium 9.8 Magnesium 1.6 Total Bilirubin 0.60 AST 37 H ALT 25 Alkaline Phosphatase 114 Troponin I NT-Pro-B Natriuret Pep 494 Serum Total Protein 8.0 Albumin 4.5 Urinalys Dipstick Clnc Urine Color Urine Appearance Urine pH Ur Specific [place] POC Urine Protein Conf Urine Ketones Urine Nitrite Urine Bilirubin Urine Urobilinogen Urine Leukocytes Urine WBC (Auto) Urine RBC (Auto) U Epithel Cells (Auto) Urine Bacteria (Auto) Urine RBC Ur Culture Indicated? Urine Glucose Influenza Type A Ag Influenza Type B Ag RSV (PCR) SARS-CoV-2 (PCR) Slides for Path Review 09/14/22 09/14/22 09/14/22 18:39 18:39 18:39 WBC RBC Hgb Hct MCV MCH MCHC RDW Plt Count MPV Gran % Immature Gran % (Auto) Nucleat RBC Rel Count Eos # (Auto) Immature Gran # (Auto) Absolute Lymphs (auto) Absolute Monos (auto) Absolute Nucleated RBC Lymphocytes % Monocytes % Eosinophils % Basophils % Absolute Granulocytes Basophils # D-Dimer < 0.19 Sodium Potassium Chloride Carbon Dioxide Anion Gap BUN Creatinine Estimated GFR Glucose Lactic Acid Calcium Magnesium Total Bilirubin AST ALT Alkaline Phosphatase Troponin I < 0.012 NT-Pro-B Natriuret Pep Serum Total Protein Albumin Urinalys Dipstick Clnc Urine Color Urine Appearance Urine pH Ur Specific [place] POC Urine Protein Conf Urine Ketones Urine Nitrite Urine Bilirubin Urine Urobilinogen Urine Leukocytes Urine WBC (Auto) Urine RBC (Auto) U Epithel Cells (Auto) Urine Bacteria (Auto) Urine RBC Ur Culture Indicated? Urine Glucose Influenza Type A Ag NEGATIVE Influenza Type B Ag NEGATIVE RSV (PCR) NEGATIVE SARS-CoV-2 (PCR) NEGATIVE Slides for Path Review 09/14/22 09/14/22 09/15/22 19:35 22:31 02:46 WBC RBC Hgb Hct MCV MCH MCHC RDW Plt Count MPV Gran % Immature Gran % (Auto) Nucleat RBC Rel Count Eos # (Auto) Immature Gran # (Auto) Absolute Lymphs (auto) Absolute Monos (auto) Absolute Nucleated RBC Lymphocytes % Monocytes % Eosinophils % Basophils % Absolute Granulocytes Basophils # D-Dimer Sodium Potassium Chloride Carbon Dioxide Anion Gap BUN Creatinine Estimated GFR Glucose Lactic Acid Calcium Magnesium Total Bilirubin AST ALT Alkaline Phosphatase Troponin I < 0.012 < 0.012 NT-Pro-B Natriuret Pep Serum Total Protein Albumin Urinalys Dipstick Clnc MAIN LAB Urine Color YELLOW Urine Appearance CLEAR Urine pH 6.5 Ur Specific [place] 1.010 POC Urine Protein Conf NEGATIVE Urine Ketones NEGATIVE Urine Nitrite NEGATIVE Urine Bilirubin NEGATIVE Urine Urobilinogen 0.2 Urine Leukocytes SMALL A Urine WBC (Auto) 6-10 A Urine RBC (Auto) 3-5 A U Epithel Cells (Auto) RARE Urine Bacteria (Auto) NONE Urine RBC TRACE-INTACT A Ur Culture Indicated? YES Urine Glucose NEGATIVE Influenza Type A Ag Influenza Type B Ag RSV (PCR) SARS-CoV-2 (PCR) Slides for Path Review 09/15/22 09/15/22 02:46 02:46 WBC 4.5 RBC 4.46 Hgb 13.0 Hct 40.2 MCV 90.1 MCH 29.1 MCHC 32.3 RDW 12.8 Plt Count 268 MPV 11.5 H Gran % 85.8 H Immature Gran % (Auto) 0.7 H Nucleat RBC Rel Count 0.0 Eos # (Auto) 0.01 Immature Gran # (Auto) 0.03 Absolute Lymphs (auto) 0.55 L Absolute Monos (auto) 0.03 Absolute Nucleated RBC 0.00 Lymphocytes % 12.4 L Monocytes % 0.7 Eosinophils % 0.2 Basophils % 0.2 Absolute Granulocytes 3.82 Basophils # 0.01 D-Dimer Sodium 134 L Potassium 3.6 Chloride 95 L Carbon Dioxide 34 H Anion Gap 8.3 BUN 13 Creatinine 0.55 Estimated GFR > 60.0 Glucose 192 H Lactic Acid Calcium 9.1 Magnesium Total Bilirubin 0.40 AST 35 ALT 24 Alkaline Phosphatase 94 Troponin I NT-Pro-B Natriuret Pep 358 Serum Total Protein 7.4 Albumin 4.0 Urinalys Dipstick Clnc Urine Color Urine Appearance Urine pH Ur Specific [place] POC Urine Protein Conf Urine Ketones Urine Nitrite Urine Bilirubin Urine Urobilinogen Urine Leukocytes Urine WBC (Auto) Urine RBC (Auto) U Epithel Cells (Auto) Urine Bacteria (Auto) Urine RBC Ur Culture Indicated? Urine Glucose Influenza Type A Ag Influenza Type B Ag RSV (PCR) SARS-CoV-2 (PCR) Slides for Path Review YES - Vitals & Intake/Output Vital Signs: Vital Signs Temperature 98.4 F 09/15/22 12:00 Pulse Rate 82 09/15/22 12:00 Respiratory Rate 18 09/15/22 12:00 Blood Pressure 119/64 09/15/22 12:00 O2 Sat by Pulse Oximetry 93 L 09/15/22 12:00 Intake & Output: Intake & Output 09/13/22 09/14/22 09/15/22 09/16/22 11:59 11:59 11:59 11:59 Intake Total 440 240 Balance 440 240 Weight 61.4 kg - Lab Result Diagrams: 09/15/22 02:46 09/15/22 02:46 Lab Results-Last 24 Hrs: Lab Results-Last 24 Hours 09/14/22 09/14/22 09/14/22 Range/Units 18:18 18:39 18:39 WBC 6.4 (4.0-10.5) x10^3/uL RBC 4.54 (4.1-5.4) x10^6/uL Hgb 13.1 (12.0-16.0) g/dL Hct 40.5 (35-47) % MCV 89.2 (78-100) fL MCH 28.9 (26-32) pg MCHC 32.3 (32-36) g/dL RDW 12.8 (11.5-14.0) % Plt Count 270 (150-450) x10^3/uL MPV 11.1 H (7.5-11.0) fL Gran % 69.1 H (36.0-66.0) % Immature Gran % (Auto) 0.3 (0.00-0.4) % Nucleat RBC Rel Count 0.0 (0.00-0.1) % Eos # (Auto) 0.01 (0-0.5) x10^3/uL Immature Gran # (Auto) 0.02 (0.00-0.03) x10^3u/L Absolute Lymphs (auto) 1.29 (1.0-4.6) x10^3/uL Absolute Monos (auto) 0.63 (0.0-1.3) x10^3/uL Absolute Nucleated RBC 0.00 (0.00-0.01) x10^3u/L Lymphocytes % 20.2 L (24.0-44.0) % Monocytes % 9.9 (0.0-12.0) % Eosinophils % 0.2 (0.00-5.0) % Basophils % 0.3 (0.0-0.4) % Absolute Granulocytes 4.42 (1.4-6.9) x10^3/uL Basophils # 0.02 (0-0.4) x10^3/uL D-Dimer (0.0-0.50) mg/L Sodium 136 L (137-145) mmol/L Potassium 3.4 L (3.5-5.1) mmol/L Chloride 95 L (98-107) mmol/L Carbon Dioxide 34 H (22-30) mmol/L Anion Gap 9.9 (5-15) MEQ/L BUN 14 (7-17) mg/dL Creatinine 0.61 (0.52-1.04) mg/dL Estimated GFR > 60.0 ML/MIN Glucose 97 (74-106) mg/dL Lactic Acid 1.2 (0.4-2.0) Calcium 9.8 (8.4-10.2) mg/dL Magnesium 1.6 (1.6-2.3) mg/dL Total Bilirubin 0.60 (0.2-1.3) mg/dL AST 37 H (14-36) U/L ALT 25 (0-35) U/L Alkaline Phosphatase 114 (38-126) U/L Troponin I (0.000-0.034) ng/mL NT-Pro-B Natriuret Pep 494 (0-900) pg/mL Serum Total Protein 8.0 (6.3-8.2) g/dL Albumin 4.5 (3.5-5.0) g/dL Urinalys Dipstick Clnc Urine Color (YELLOW) Urine Appearance (CLEAR) Urine pH (5-6) Ur Specific [place] (1.005-1.025) POC Urine Protein Conf (Negative) Urine Ketones (NEGATIVE) Urine Nitrite (NEGATIVE) Urine Bilirubin (NEGATIVE) Urine Urobilinogen (0-1) mg/dL Urine Leukocytes (NEGATIVE) Urine WBC (Auto) (0-5) /HPF Urine RBC (Auto) (0-2) /HPF U Epithel Cells (Auto) (FEW) /HPF Urine Bacteria (Auto) (NEGATIVE) /HPF Urine RBC (0-5) Patricio/ul Ur Culture Indicated? Urine Glucose (NEGATIVE) mg/dL Influenza Type A Ag (NEGATIVE) Influenza Type B Ag (NEGATIVE) RSV (PCR) (Negative) SARS-CoV-2 (PCR) (NEGATIVE) Slides for Path Review 09/14/22 09/14/22 09/14/22 Range/Units 18:39 18:39 18:39 WBC (4.0-10.5) x10^3/uL RBC (4.1-5.4) x10^6/uL Hgb (12.0-16.0) g/dL Hct (35-47) % MCV (78-100) fL MCH (26-32) pg MCHC (32-36) g/dL RDW (11.5-14.0) % Plt Count (150-450) x10^3/uL MPV (7.5-11.0) fL Gran % (36.0-66.0) % Immature Gran % (Auto) (0.00-0.4) % Nucleat RBC Rel Count (0.00-0.1) % Eos # (Auto) (0-0.5) x10^3/uL Immature Gran # (Auto) (0.00-0.03) x10^3u/L Absolute Lymphs (auto) (1.0-4.6) x10^3/uL Absolute Monos (auto) (0.0-1.3) x10^3/uL Absolute Nucleated RBC (0.00-0.01) x10^3u/L Lymphocytes % (24.0-44.0) % Monocytes % (0.0-12.0) % Eosinophils % (0.00-5.0) % Basophils % (0.0-0.4) % Absolute Granulocytes (1.4-6.9) x10^3/uL Basophils # (0-0.4) x10^3/uL D-Dimer < 0.19 (0.0-0.50) mg/L Sodium (137-145) mmol/L Potassium (3.5-5.1) mmol/L Chloride (98-107) mmol/L Carbon Dioxide (22-30) mmol/L Anion Gap (5-15) MEQ/L BUN (7-17) mg/dL Creatinine (0.52-1.04) mg/dL Estimated GFR ML/MIN Glucose (74-106) mg/dL Lactic Acid (0.4-2.0) Calcium (8.4-10.2) mg/dL Magnesium (1.6-2.3) mg/dL Total Bilirubin (0.2-1.3) mg/dL AST (14-36) U/L ALT (0-35) U/L Alkaline Phosphatase (38-126) U/L Troponin I < 0.012 (0.000-0.034) ng/mL NT-Pro-B Natriuret Pep (0-900) pg/mL Serum Total Protein (6.3-8.2) g/dL Albumin (3.5-5.0) g/dL Urinalys Dipstick Clnc Urine Color (YELLOW) Urine Appearance (CLEAR) Urine pH (5-6) Ur Specific [place] (1.005-1.025) POC Urine Protein Conf (Negative) Urine Ketones (NEGATIVE) Urine Nitrite (NEGATIVE) Urine Bilirubin (NEGATIVE) Urine Urobilinogen (0-1) mg/dL Urine Leukocytes (NEGATIVE) Urine WBC (Auto) (0-5) /HPF Urine RBC (Auto) (0-2) /HPF U Epithel Cells (Auto) (FEW) /HPF Urine Bacteria (Auto) (NEGATIVE) /HPF Urine RBC (0-5) Patricio/ul Ur Culture Indicated? Urine Glucose (NEGATIVE) mg/dL Influenza Type A Ag NEGATIVE (NEGATIVE) Influenza Type B Ag NEGATIVE (NEGATIVE) RSV (PCR) NEGATIVE (Negative) SARS-CoV-2 (PCR) NEGATIVE (NEGATIVE) Slides for Path Review 09/14/22 09/14/22 09/15/22 Range/Units 19:35 22:31 02:46 WBC (4.0-10.5) x10^3/uL RBC (4.1-5.4) x10^6/uL Hgb (12.0-16.0) g/dL Hct (35-47) % MCV (78-100) fL MCH (26-32) pg MCHC (32-36) g/dL RDW (11.5-14.0) % Plt Count (150-450) x10^3/uL MPV (7.5-11.0) fL Gran % (36.0-66.0) % Immature Gran % (Auto) (0.00-0.4) % Nucleat RBC Rel Count (0.00-0.1) % Eos # (Auto) (0-0.5) x10^3/uL Immature Gran # (Auto) (0.00-0.03) x10^3u/L Absolute Lymphs (auto) (1.0-4.6) x10^3/uL Absolute Monos (auto) (0.0-1.3) x10^3/uL Absolute Nucleated RBC (0.00-0.01) x10^3u/L Lymphocytes % (24.0-44.0) % Monocytes % (0.0-12.0) % Eosinophils % (0.00-5.0) % Basophils % (0.0-0.4) % Absolute Granulocytes (1.4-6.9) x10^3/uL Basophils # (0-0.4) x10^3/uL D-Dimer (0.0-0.50) mg/L Sodium (137-145) mmol/L Potassium (3.5-5.1) mmol/L Chloride (98-107) mmol/L Carbon Dioxide (22-30) mmol/L Anion Gap (5-15) MEQ/L BUN (7-17) mg/dL Creatinine (0.52-1.04) mg/dL Estimated GFR ML/MIN Glucose (74-106) mg/dL Lactic Acid (0.4-2.0) Calcium (8.4-10.2) mg/dL Magnesium (1.6-2.3) mg/dL Total Bilirubin (0.2-1.3) mg/dL AST (14-36) U/L ALT (0-35) U/L Alkaline Phosphatase (38-126) U/L Troponin I < 0.012 < 0.012 (0.000-0.034) ng/mL NT-Pro-B Natriuret Pep (0-900) pg/mL Serum Total Protein (6.3-8.2) g/dL Albumin (3.5-5.0) g/dL Urinalys Dipstick Clnc MAIN LAB Urine Color YELLOW (YELLOW) Urine Appearance CLEAR (CLEAR) Urine pH 6.5 (5-6) Ur Specific [place] 1.010 (1.005-1.025) POC Urine Protein Conf NEGATIVE (Negative) Urine Ketones NEGATIVE (NEGATIVE) Urine Nitrite NEGATIVE (NEGATIVE) Urine Bilirubin NEGATIVE (NEGATIVE) Urine Urobilinogen 0.2 (0-1) mg/dL Urine Leukocytes SMALL A (NEGATIVE) Urine WBC (Auto) 6-10 A (0-5) /HPF Urine RBC (Auto) 3-5 A (0-2) /HPF U Epithel Cells (Auto) RARE (FEW) /HPF Urine Bacteria (Auto) NONE (NEGATIVE) /HPF Urine RBC TRACE-INTACT A (0-5) Patricio/ul Ur Culture Indicated? YES Urine Glucose NEGATIVE (NEGATIVE) mg/dL Influenza Type A Ag (NEGATIVE) Influenza Type B Ag (NEGATIVE) RSV (PCR) (Negative) SARS-CoV-2 (PCR) (NEGATIVE) Slides for Path Review 09/15/22 09/15/22 Range/Units 02:46 02:46 WBC 4.5 (4.0-10.5) x10^3/uL RBC 4.46 (4.1-5.4) x10^6/uL Hgb 13.0 (12.0-16.0) g/dL Hct 40.2 (35-47) % MCV 90.1 (78-100) fL MCH 29.1 (26-32) pg MCHC 32.3 (32-36) g/dL RDW 12.8 (11.5-14.0) % Plt Count 268 (150-450) x10^3/uL MPV 11.5 H (7.5-11.0) fL Gran % 85.8 H (36.0-66.0) % Immature Gran % (Auto) 0.7 H (0.00-0.4) % Nucleat RBC Rel Count 0.0 (0.00-0.1) % Eos # (Auto) 0.01 (0-0.5) x10^3/uL Immature Gran # (Auto) 0.03 (0.00-0.03) x10^3u/L Absolute Lymphs (auto) 0.55 L (1.0-4.6) x10^3/uL Absolute Monos (auto) 0.03 (0.0-1.3) x10^3/uL Absolute Nucleated RBC 0.00 (0.00-0.01) x10^3u/L Lymphocytes % 12.4 L (24.0-44.0) % Monocytes % 0.7 (0.0-12.0) % Eosinophils % 0.2 (0.00-5.0) % Basophils % 0.2 (0.0-0.4) % Absolute Granulocytes 3.82 (1.4-6.9) x10^3/uL Basophils # 0.01 (0-0.4) x10^3/uL D-Dimer (0.0-0.50) mg/L Sodium 134 L (137-145) mmol/L Potassium 3.6 (3.5-5.1) mmol/L Chloride 95 L (98-107) mmol/L Carbon Dioxide 34 H (22-30) mmol/L Anion Gap 8.3 (5-15) MEQ/L BUN 13 (7-17) mg/dL Creatinine 0.55 (0.52-1.04) mg/dL Estimated GFR > 60.0 ML/MIN Glucose 192 H (74-106) mg/dL Lactic Acid (0.4-2.0) Calcium 9.1 (8.4-10.2) mg/dL Magnesium (1.6-2.3) mg/dL Total Bilirubin 0.40 (0.2-1.3) mg/dL AST 35 (14-36) U/L ALT 24 (0-35) U/L Alkaline Phosphatase 94 (38-126) U/L Troponin I (0.000-0.034) ng/mL NT-Pro-B Natriuret Pep 358 (0-900) pg/mL Serum Total Protein 7.4 (6.3-8.2) g/dL Albumin 4.0 (3.5-5.0) g/dL Urinalys Dipstick Clnc Urine Color (YELLOW) Urine Appearance (CLEAR) Urine pH (5-6) Ur Specific [place] (1.005-1.025) POC Urine Protein Conf (Negative) Urine Ketones (NEGATIVE) Urine Nitrite (NEGATIVE) Urine Bilirubin (NEGATIVE) Urine Urobilinogen (0-1) mg/dL Urine Leukocytes (NEGATIVE) Urine WBC (Auto) (0-5) /HPF Urine RBC (Auto) (0-2) /HPF U Epithel Cells (Auto) (FEW) /HPF Urine Bacteria (Auto) (NEGATIVE) /HPF Urine RBC (0-5) Patricio/ul Ur Culture Indicated? Urine Glucose (NEGATIVE) mg/dL Influenza Type A Ag (NEGATIVE) Influenza Type B Ag (NEGATIVE) RSV (PCR) (Negative) SARS-CoV-2 (PCR) (NEGATIVE) Slides for Path Review YES - Radiology Exams Ordered Rad Exams-Entire Visit: Radiology Procedures Category Date Time Status CHEST 1 VIEW (PORTABLE) Stat Exams 09/14/22 18:03 Completed - Procedures and Test Procedures and Tests throughout Hospitalization: Therapy Orders & Screens 09/14/22 18:32 Respiratory Therapy Assessment DAILY Comment: 09/15/22 00:26 Oxygen Nasal Cannula 2 lpm Comment: Respiratory Therapy Consult ROUTINE Comment: Reason For Exam: 09/15/22 13:16 Qualify for Home Oxygen TODAY Comment: Diagnosis: hypoxia, uti - Discharge Discharge Date: 09/15/22 Disposition: Home, Self-Care Condition: Fair Prescriptions: New cephALEXin [Cephalexin] 500 mg PO QID 7 Days #28 tablet No Action Trazodone HCl 50 mg [Desyrel 50 mg] 150 mg PO DAILY raNITIdine HCL [Taladine] 150 mg PO DAILY PANTOPRAZOLE 40 mg Tablet [Protonix 40MG Tablet] 40 mg PO DAILY lamoTRIgine [Lamictal] 25 mg PO DAILY Buprenorphine HCl/Naloxone HCl [Suboxone 8 mg-2 mg Sl Film] 8 mg SL TID ARIPiprazole [Aripiprazole] 2 mg PO HS Sertraline HCl [Zoloft] 100 mg PO DAILY Rivaroxaban 10 mg Tablet [Xarelto 10 mg Tablet] 10 mg PO DAILY Famotidine 40 mg PO DAILY Instructions: Urinary Tract Infection, Adult (DC), Oxygen Therapy, Adult (DC) Follow up with: TYE BROWER MD [Primary Care Provider] - 10/04/22 11:00 am
[2022-09-15] MEDS ORDERED: NON-FORMULARY BULK ITEM SL SCH (22:00)
[2022-09-15] MEDS ORDERED: ROCEPHIN 1 Gm-D5w 50 ml Bag** 1 G/50 ML IVPB IV SCH (22:00)
[2022-09-15] MEDS ORDERED: Desyrel 150 MG PO SCH (22:00)
[2022-09-15] MEDS ORDERED: XARELTO 10 MG TABLET PO SCH (22:00)
== END 2022-09-15 15:20 | disposition home or self-care (01) ==
LOC: ED 17:16 → MED SURG 09-15 00:18
PROVIDERS: ADMIT General Practice; ATTEND General Practice
DX: N39.0 Urinary tract infection, site not specified (principal); B34.9 Viral infection, unspecified; R09.02 Hypoxemia; Z79.899 Other long term (current) drug therapy; Z20.828 Contact with and (suspected) exposure to other viral communicable diseases
CPT/HCPCS: 0241U; 36000; 36415; 71045; 80053; 81015; 83605; 83735; 83880; 84484; 85025; 85379; 87040; 87086; 93005; 94640; 94760; 96365; 96374; 99285; G0378; J0696; J2930; A9270-GY